=== PATIENT | female | born 1985 | race Caucasian/White ===

== ENCOUNTER 2024-12-13 16:14 | Outpatient (OUT) | payer OTHER, SELFPAY ==
--- OUTSIDE RECORDS SUMMARY | 2024-12-13 16:21 | XMS_ITS | Encounter Summary ---
Author Organization [facility] Address [address] [place] [address] Care Team Providers Care Milk Drying Machine Operator Name Role Phone Unavailable Primary Care Provider Unavailabl e Source Comments In the event this information is protected by the Federal Confidentiality of Alcohol and Drug AbusePatient Records regulations: The Federal rules restrict any use of the information to criminally investigate or prosecute any alcohol or drug abuse patient.[facility] Encounter Details Date Type Department Care Team (Late st Contact Info) Description 11/18/2022 Patient Msg Neurology [address] [place] [address] Provider, Ccf Requested EMG Appointment Social History Tobacco Use Types Packs/Day Years Used Date Smoking Tobacco: Never Smokeless Tobacco: Never Area Deprivation Index Answer Date Jg rded National Score (1-100), lower number is lower ri sk 61 11/12/2022 State Score (1-10), lower number is lower risk 4 11/12/2022 Data from: https://www.neighborhoodatlas.medicine.[facility].edu/. Last address used for calculation [place] [address] 11/12/2022 Comments Unknown Sex and Gender Information Value Date Recorded Sex Assigned at Not on file Legal Sex Female 9:49 PM EST Gender Identity Not on file Sexual Orientation Not on file documented as of this encounter Plan of Treatment Not on file documented as of this encounter Visit Diagnoses Not on filedocumented in this encounter
--- OUTSIDE RECORDS SUMMARY | 2024-12-13 16:21 | XMS_ITS | Clinical Summary ---
Author Organization [employer] Address [id number] [address] [place] [address] Care Team Providers Care Health Occupations Teacher Name Role Phone Unavailable Primary Care Provider Unavailabl e Social History Tobacco Use Types Packs/Day Years Used Date Smoking Tobacco: Never Assessed Childcare Answer Date Recorded Childcare Unknown 12/09/2018 Employment Answer Date Recorded Employment Unknown 12/09/2018 Comments Unknown Sex and Gender Information Value Date Recorded Sex Assigned at Not on file Legal Sex Female 12:07 PM EDT Gender Identity Not on file Sexual Orientation Not on file Plan of Treatment Not on file Medical Devices Not on file
--- OUTSIDE RECORDS SUMMARY | 2024-12-13 16:21 | XMS_ITS | Clinical Summary ---
Author Organization [facility] Address [address] [place] [address] Care Team Providers Care Stab Setter And Driller Name Role Phone Unavailable Primary Care Provider Unavailabl e Allergies Active Allergy Reactions Criticality Noted Date Comments Cephalexin Hives 11/12/2022 Medications VYVANSE 30 mg capsule Take 30 mg by mouth every morning. 11/04/2022 Active escitalopram oxalate (LEXAPRO) 10 mg tablet Take 10 mg by mouth once daily. 09/11/2022 Active omeprazole (PRILOSEC) 40 mg capsule Take 40 mg by mouth. 07/08/2022 Active gabapentin (NEURONTIN) 300 mg capsule Take 1 capsule by mouth once daily for 90 days. 30 capsule 2 02/07/2023 Active Social History Tobacco Use Types Packs/Day Years Used Date Smoking Tobacco: Never Smokeless Tobacco: Never Tobacco Cessation:Counseling Given: Not Answered Area Deprivation Index Answer Date Jg rded National Score (1-100), lower number is lower ri sk 61 02/07/2023 State Score (1-10), lower number is lower risk 4 02/07/2023 Data from: https://www.neighborhoodatlas.medicine.[facility].edu/. Last address used for calculation Aman [address] 02/07/2023 Comments Unknown Sex and Gender Information Value Date Recorded Sex Assigned at Not on file Legal Sex Female 9:49 PM EST Gender Identity Not on file Sexual Orientation Not on file Plan of Treatment Health Maintenance Due Date Last Done Comments Anxiety Screening 12/17/2005 Depression Screening 12/17/2005 HIV Screening 12/17/2005 Hepatitis C Screening 12/17/2005 DTaP,Tdap,Td Vaccine (1 - Tdap) 12/17/2006 Hepatitis B Vaccine (1 of 3 - 19+ 3-dose series) 12/17 Cervical Cancer Screening 12/17/2008 Covid-19 Vaccine (2023- season) 2024 Influenza Vaccine (Season Ended) 2025 Insurance [employer] BC[employer] [facility]
--- OUTSIDE RECORDS SUMMARY | 2024-12-13 16:21 | XMS_ITS | Patient Health Record ---
Author Organization [facility] Address [address] [place] [address] Care Team Providers Care Project Development Manager Name Role Phone Ja Ousmane Primary Care Provider Reason For Referral No Information Encounters Encounter Location Date Provider Diagnosis [facility] [address] [place] [address] 02/11/2024 Ousmane Peres Plan Of Treatment No Information Insurance Providers Payer Name Payer Address Payer Phone Subscriber Number Group Number Insured Name Patient Relationship to Insured Coverage Start Date Coverage End Date [employer] PPO [address] [place] [address] [id number] HUMBERTO GARCIA Self - patient is the insured 4 [facility] Medicaid [address] [place] [address] [id number] HUMBERTO GARCIA Self - patient is the insured 4 [employer] [facility] [employer] [address] [place] [address] [id number] HUMBERTO GARCIA Self - patient is the insured 4
[2024-12-13 16:57] LABS: Basophils Percent Auto 0.3 % (0.2-2.0); Eosinophils Absolute Auto 0.1 10^3/uL (0.0-0.7); Eosinophils Percent Auto 0.9 % (0.9-7.0); Hematocrit 40.2 % (36.0-48.0); Hemoglobin 14.4 g/dL (12.0-16.0); Immature Granulocytes Abs Auto 0.03 10^3/uL (0.00-0.03); Immature Granulocytes Pct Auto 0.4 % (0.0-0.5); Lymphocytes Absolute Auto 2.6 10^3/uL (1.2-3.8); Lymphocytes Percent Auto 34.9 % (20.5-60.0); Mean Corpuscular HGB Conc 35.8 g/dL (29.9-35.2); Mean Corpuscular Hemoglobin 32.1 pg (26.7-34.0); Mean Corpuscular Volume 89.7 fL (81.0-99.0); Mean Platelet Volume 10.6 fL (9.5-13.5); Monocytes Absolute Auto 0.6 10^3/uL (0.3-0.8); Monocytes Percent Auto 7.6 % (1.7-12.0); Neutrophils Absolute Auto 4.2 10^3/uL (1.4-6.5); Neutrophils Percent Auto 55.9 % (43.0-75.0); Platelet Count 166 10^3/uL (150-450); Red Blood Count 4.48 10^6/uL (4.20-5.40); White Blood Count 7.5 10^3/uL (4.0-11.0)
[2024-12-13 17:10] LABS: Estimated Average Glucose 108 mg/dL; Glycohemoglobin A1C 5.4 % (4.5-6.2)
[2024-12-13 17:21] LABS: HCG Quantitative <1 mIU/mL; Thyroid Stimulating Hormone 1.684 uIU/mL (0.358-3.740)
[2024-12-13 17:53] LABS: Free T4 0.91 ng/dL (0.76-1.46)
[2024-12-15 04:07] LABS: FSH 4.2 mIU/mL (.); Luteinizing Hormone(LH) 4.2 mIU/mL (.)
== END 2024-12-13 16:15 | disposition home or self-care (01) ==
LOC: LAB 16:19
PROVIDERS: PCP Family Medicine; Visit Provider Nurse Practitioner Family
DX: E28.2 Polycystic ovarian syndrome (principal)
CPT/HCPCS: 36415; 82627; 83001; 83002; 83036; 84439; 84443; 84702; 85025

== ENCOUNTER 2025-03-17 15:18 | Outpatient (OUT) | payer OTHER, SELFPAY ==
--- OUTSIDE RECORDS SUMMARY | 2025-03-14 14:00 | XMS_ITS | Encounter Summary ---
Author Organization [facility] Address [address] [facility] [place] [address] Care Team Providers Care Pre K Teacher Name Role Phone Félix Campbell MD Primary Care Provider [phone] Reason for Referral * Other Medical (Routine) - Authorized Specialty Diagnoses / Procedures Referred By Contac t Referred To Contact Neurology Diagnoses Arm weakness Numbness Arm pain, left Procedures EMG AND NERVE CONDUCTION STUDY Bala Champagne PA [address] [place] [address] Phone: tel: fax: Nell Vazquez DO [address] [facility] [address] [place] [address] Phone: tel: fax: Referral ID Status Reason Start Date Expiration Date V isits Requested Visits Authorized [id number] Authorized 03/14/2025 09/10/2025 1 1 Reason for Visit * Reason Comments Pain Encounter Details Date Type Department Care Team (Late st Contact Info) Description 03/14/2025 2:00 PM EDT Office Visit [facility] [address] [facility] [address] [place] [address] Bala Champagne PA [address] [place] [address] Acute pain of left shoulder (Primary Dx); Left elbow pain; Arm weakness; Numbness; Arm pain, left Social History Tobacco Use Types Packs/Day Years Used Date Smoking Tobacco: Never Assessed Comments No Sex and Gender Information Value Date Recorded Sex Assigned at Female 12/06/2024 6:41 PM EDT Legal Sex Female 7:05 PM EDT Gender Identity Female 12/06/2024 6:41 PM EDT Sexual Orientation Not on file documented as of this encounter Progress Notes * VINICIUS Ortez - 03/14/2025 2:00 PM EDT Images from the original note were not included. Orthopedic Office note: NAME: Oneida Rachel : 1985 (EST PT) (LAST APPT W/ DR. CLEANING) (NEW PROBLEM) - WORSENING (L) SHOULDER / (L) ELBOW N/T / DISCOMFORT ~1 YR NO RECENT IMAGING NO RECENT EMG (L) ELBOW CONSTANT DISCOMFORT TO ULNAR ASPECT - RADIATION TO FINGERS / WRIST. ADMITS N/T TO ULNAR ASPECT WITHPRESSURE ON ELBOW / BENT. GOOD ROM. ADMITS STIFFNESS. ADMITS WEAKNESS. DENIES SWELLING. TRIED ELBOWSTRAP - SOME RELIEF. NIGHT SPLINTING - MINIMAL RELIEF. WAKING HS. USES CONTOUR PILLOW HS. NO PAIN MEDS. VOLTAREN - NO RELIEF. ADMITS ICING. (L) SHOULDER ANTERIOR DISCOMFORT / N/T - CAN RADIATE INTO NECK. DENIES SWELLING. ADMITS TIGHTNESS. SOME WEAKNESS- DIFFICULTY WITH OPENING THINGS. GOOD ROM - PAINFUL. WAKING HS. USES CONTOUR PILLOW HS. VOLTAREN -NO RELIEF. NO PAIN MEDS. ADMITS ICING. Physical Exam General Appearance: Normal. Respiratory: No acute distress. Cardiovascular: Radial pulses 2+. Musculoskeletal: Left arm: Mild Tinel's at the cubital tunnel. Negative Tinel's at the carpal tunnel. Equal symmetric title clerk strength 5 out of 5. Wrist flexion, extension 5 out of 5 against resistance.Bicep, tricep function 5 out of 5 against resistance. Deltoid intact with sensation, firing 5 out of 5. Rotator cuff 5 out of 5 without significant pain. Mild AC joint tenderness. Full range of motion of elbow, passive and active without complaints of pain. Positive elbow flexion test. Negative Froment sign. No evidence of first dorsal webspace atrophy. Compartments are soft. Skin: Small patch of psoriasis or eczema noted behind left ear. Skin without evidence of rash. Neurological: Symmetric reflexes, bicep, tricep, brachioradialis that are 2+ without clonus. Negative Murillo sign. Other observations: Negative for Spurling's. Mild soreness in left trapezius. Full range of motion without complaints of pain. Orders Placed This Encounter Procedures EMG AND NERVE CONDUCTION STUDY Right Upper Extremity EMG Scheduling Instructions: Schedule with Dr. Vazquez @[facility] [place] Procedures Results ICD-10-CM 1. Acute pain of left shoulder M25.512 2. Left elbow pain M25.522 CANCELED: XR elbow 3+ views left 3. Arm weakness R29.898 EMG AND NERVE CONDUCTION STUDY 4. Numbness R20.0 EMG AND NERVE CONDUCTION STUDY 5. Arm pain, left M79.602 EMG AND NERVE CONDUCTION STUDY F/U Dr. Keyes s/p EMG to discuss need for possible: Consider cubital tunnel release: If neg, recommend Xray of C-spine- therapy and possible Prednisone taper Surgical and non surgical tx options discussed with conservative measures reviewed. Recommend ICE/ ELEVATION, continued activity modification in interim. Pt would consider surgical intervention to possibly improve symptoms. Assessment & Plan Left arm pain and numbness Recurrent symptoms of paresthesia and discomfort have been present for the past year, particularly noticeable at work and influenced by position. The most likely diagnosis is cubital tunnel syndrome,although this does not fully explain the symptoms extending to the shoulder. Diagnostic plan: An EMG of the left upper extremity has been recommended to evaluate for potential nerve injury. Treatment plan: In the interim, towel rolls nightly have been advised to prevent elbow flexion while sleeping, with instructions provided on their application and use at the bedside. Anxiety Anxiety has been intermittently treated previously and appears to exacerbate symptoms in certain situations. Follow-up: She plans to discuss her anxiety with her family doctor at an upcoming appointment. Questions answered in laymen terms at the bedside. The diagnosis, home exercise plan and any ongoing restrictions/ recommendations reviewed. If unable to be reached in office, I recommend evaluation at nearest Emergency Room if any symptoms worsened or new symptoms develop for requiring urgent evaluation. Visit was preformed using [employer]-airplane pilot speech recognition. documented in this encounter Plan of Treatment Upcoming Encounters Date Type Department Care Team (Late st Contact Info) Description 04/06/2025 1:30 PM EDT Office Visit [facility] [address] [place] [phone] Jr. Macario Keyes, DO [address] [facility] [address] [place] [address] Scheduled Orders Name Type Priority Associated Diagnoses Orde r Schedule EMG AND NERVE CONDUCTION STUDY Neurology Routine Arm weakness Numbness Arm pain, left Ordered: 03/14/2025 documented as of this encounter Visit Diagnoses Diagnosis Acute pain of left shoulder- Primary Left elbow pain Pain in joint, upper arm Arm weakness Other musculoskeletal symptoms referable to limbs Numbness Disturbance of skin sensation Arm pain, left Pain in soft tissues of limb documented in this encounter Care Teams Pre K Teacher Relationship Specialty Start Date End Date Félix Campbell MD [address] [place] [address] PCP - General Family Medicine 12/13/24 documented as of this encounter
--- OUTSIDE RECORDS SUMMARY | 2025-03-17 15:22 | XMS_ITS | Encounter Summary ---
Author Organization [facility] Address [address] [facility] [place] [address] Care Team Providers Care Cemetery Warden Name Role Phone Félix Campbell MD Primary Care Provider [phone] Encounter Details Date Type Department Care Team (Latest Contact Info) Description 03/14/2025 Travel Social History Tobacco Use Types Packs/Day Years Used Date Smoking Tobacco: Never Assessed Comments No Sex and Gender Information Value Date Recorded Sex Assigned at Female 12/06/2024 6:41 PM EDT Legal Sex Female 7:05 PM EDT Gender Identity Female 12/06/2024 6:41 PM EDT Sexual Orientation Not on file documented as of this encounter Plan of Treatment Upcoming Encounters Date Type Department Care Team (Late st Contact Info) Description 04/06/2025 1:30 PM EDT Office Visit [facility] [address] [facility] [address] [place] [address] Jr. Macario Keyes, DO [address] [facility] [address] [place] [address] documented as of this encounter Visit Diagnoses Not on filedocumented in this encounter Care Teams Cemetery Warden Relationship Specialty Start Date End Date Félix Campbell MD [address] [place] [address] PCP - General Family Medicine 12/13/24 documented as of this encounter
--- OUTSIDE RECORDS SUMMARY | 2025-03-17 15:22 | XMS_ITS | Encounter Summary ---
Author Organization [facility] Address [address] [place] [address] Care Team Providers Care Sat Act Instructor Name Role Phone Félix Campbell MD Primary Care Provider [phone] Encounter Details Date Type Department Care Team (Late st Contact Info) Description 12/23/2024 Orders Only [facility] [address] [facility] [address] [address] Marsha Miller LPN [address] [place] [address] Social History Tobacco Use Types Packs/Day Years Used Date Smoking Tobacco: Never Assessed Comments Unknown Sex and Gender Information Value [...] [facility] [address] [place] [address] [place] [id number] Jr. Macario Keyes, DO [address] [facility] [address] [place] [address] documented as of this encounter Procedures Procedure Name Priority Date/Time Associated Diagnosis Comments PAP SMEAR Routine 03/13/2022 12:00 AM EDT documented in this encounter Results * Pap Smear (03/13/2022 12:00 AM EDT) Swab Cervical swab / Unknown Phill Nurse [facility] CYTOLOGY ORDERABLES Final Result EXTERNAL LAB documented in this encounter Visit Diagnoses Not on filedocumented in this encounter Care Teams Sat Act Instructor Relationship Specialty Start Date End Date Félix Campbell MD [address] [place] [address] PCP - General Family Medicine 12/13/24 documented as of this encounter
--- OUTSIDE RECORDS SUMMARY | 2025-03-17 15:22 | XMS_ITS | Encounter Summary ---
Author Organization [facility] Address [address] [place] [address] Care Team Providers Care Tanning Wheel Filler Name Role Phone Félix Campbell MD Primary Care Provider [phone] Encounter Details Date Type Department Care Team (Late st Contact Info) Description 01/04/2025 Abstract [facility] [address] [facility] [place] [address] Dory Victor MA Social History Tobacco Use Types Packs/Day Years [...] Description 04/06/2025 1:30 PM EDT Office Visit [facility] [address] [place] [address] [place] [address] Jr. Macario Keyes DO [address] [facility] [address] [place] [address] documented as of this encounter Visit Diagnoses Not on filedocumented in this encounter Care Teams Tanning Wheel Filler Relationship Specialty Start Date End Date Félix Campbell MD [address] [place] [address] PCP - General Family Medicine 12/13/24 documented as of this encounter
--- OUTSIDE RECORDS SUMMARY | 2025-03-17 15:22 | XMS_ITS | Encounter Summary ---
Author Organization [facility] Address [address] [place] [address] Care Team Providers Care Drafter Assistant Name Role Phone Unavailable Primary Care Provider Unavailabl e Source Comments In the event this information is protected by the Federal Confidentiality of Alcohol and Drug AbusePatient Records regulations: The Federal rules restrict any use of the information to criminally investigate or prosecute any alcohol or drug abuse patient.[facility] Encounter Details Date Type Department Care Team (Late st Contact Info) Description 11/18/2022 Patient Msg Neurology [address] [place] [address] Provider, Ccf Requested EMG Appointment Social History Tobacco Use Types Packs/Day Years Used Date Smoking Tobacco: Never Smokeless Tobacco: Never Area Deprivation Index Answer Date Jg rded National Score (1-100), lower number is lower ri sk 61 11/12/2022 State Score (1-10), lower number is lower risk 4 11/12/2022 Data from: https://www.neighborhoodatlas.medicine.[facility].edu/. Last address used for calculation Aman Buenrostro [...]
--- OUTSIDE RECORDS SUMMARY | 2025-03-17 15:22 | XMS_ITS | Encounter Summary ---
Author Organization [facility] Address [address] [facility] [place] [address] Care Team Providers Care Bacon Skinner Name Role Phone Félix Campbell MD Primary Care Provider [phone] Encounter Details Date Type Department Care Team (Latest Contact Info) Description 03/13/2025 Travel Social History Tobacco Use Types Packs/Day [...] Office Visit [facility] [address] [facility] [address] [place] [phone] Jr. Macario Keyes, DO 112 [facility] 150 [place] [address] documented as of this encounter Visit Diagnoses Not on filedocumented in this encounter Care Teams Bacon Skinner Relationship Specialty Start Date End Date Félix Campbell MD [address] [place] [address] PCP - General Family Medicine 12/13/24 documented as of this encounter
--- OUTSIDE RECORDS SUMMARY | 2025-03-17 15:22 | XMS_ITS | Clinical Summary ---
Author Organization [facility] Address [address] [place] [address] Care Team Providers Care Inspector Returned Materials Name Role Phone Félix Campbell MD Primary Care Provider [phone] Allergies Active Allergy Reactions Criticality Noted Date Comments Cephalexin Anaphylaxis,Cough,Hi ves, Itching,Rash High 11/12/2022 Other Reaction(s): Hives Medications omeprazole (PriLOSEC) [address] capsule Take 40 mg by mouth Daily Active amphetamine-dex troamphetamine XR (Adderall XR) 15 MG 24 hr capsule TAKE 1 CAPSULE BY MOUTH EVERY DAY IN THE MORNING 4 Active escitalopram (Lexapro) 10 MG tablet See Instructions, TAKE 1 TABLET BY MOUTH EVERY DAY, # 90 tab(s), Refills(s) 0, Pharmacy: [id number], 162.6, cm, 08/12/24 10:32:00 EST, Height/Length Dosing, 120.5, kg, 08/12/24 10:32:00 EST, Weight Dosing 5 Active escitalopram (Lexapro) 10 MG tablet 1 (one) time each day at the same time Active Vyvanse 40 MG capsule Take 40 mg by mouth 5 Active meloxicam (Mobic) 15 MG tablet TAKE 1 TABLET BY MOUTH EVERY DAY FOR 30 DAYS 4 Active metroNIDAZOLE (Metrogel) 0.75 % vaginal gelIndications: BV (bacterial vaginosis) Patient to use one applicator vaginally nightly for 5 nights, then twice weekly thereafter for 4 months. 140 g 3 5 Active metroNIDAZOLE (Flagyl) 500 MG tabletIndicatio ns:BV (bacterial vaginosis) Take 1 tablet (500 mg) by mouth in the morning and 1 tablet (500 mg) before bedtime. Do all this for 7 days. 14 tablet 03/04/20 25 Active Problems Problem Noted Date Diagnosed Date Pelvic pain in female 12/29/2024 History of ovarian cyst 12/29/2024 Encounters Date Type Department Care Team Description 03/14/2025 2:00 PM EDT Office Visit [facility] [address] [place] [address] [place] [address] Bala Champagne PA Acute pain of left shoulder (Primary Dx); Left elbow pain; Arm weakness; Numbness; Arm pain, left 03/14/2025 Bamboo flowsheet [facility] [address] [place] [address] [place] [address] Bala Champagne PA 03/14/2025 Travel 03/13/2025 Travel 02/25/2025 Telephone [facility] [address] [place] [address] Jamal Pollock DO 02/24/2025 Patient Self-Triage [facility] 521 Family Medicine [address] [facility] [place] [place] [address] Mycgraciela Quintero, Physician, 02/24/2025 Patient Self-Triage [facility] 521 Family Medicine [address] [facility] [place] [address] Mycgraciela Quintero, Physician, 01/04/2025 Abstract [facility] [address] [place] [address] Dory Victor MA 01/03/2025 Telephone [facility]ERCE[facility] [address] [place] [address] Dory Victor MA 12/29/2024 11:10 AM EDT Office Visit [facility] [place] [address] [place] [address] Jamal Pollock DO Encounter to discuss test results; Pelvic pain in female; History of ovarian cyst 12/29/2024 External Result Encounter [facility] External Department Unsolicited Jamal Pollock DO 12/29/2024 Travel 12/23/2024 Orders Only [facility] [address] [facility] [address] Marsha Miller LPN 12/15/2024 11:00 AM EDT Ancillary Procedure [facility] [address] [facility] [address] Pelvic pain in female from Last 3 Months Social History Tobacco Use Types Packs/Day Years Used Date Smoking Tobacco: Never Assessed Comments No Sex and Gender Information Value Date Recorded Sex Assigned at Female 12/06/2024 6:41 PM EDT Legal Sex Female 7:05 PM EDT Gender Identity Female 12/06/2024 6:41 PM EDT Sexual Orientation Not on file Last Filed Vital Signs Vital Sign Reading Time Taken Comments Blood Pressure 120/74 12/29/2024 11:28 AM EDT Pulse - - Temperature - - Respiratory Rate - - Oxygen Saturation - - Inhaled Oxygen Concentration - - Weight 132 kg (292 lb) 12/29/2024 11:28 AM EDT Height 162.6 cm (5' 4 ) 12/29/2024 11:28 AM EDT Body Mass Index 50.12 12/29/2024 11:28 AM EDT Plan of Treatment Upcoming Encounters Date Type Department Care Team (Late st Contact Info) Description 04/06/2025 1:30 PM EDT Office Visit [facility] [address] [place] [place] [phone] Jr. Macario Keyes, 112 [facility] 150 [place] [address] Procedures Procedure Name Priority Date/Time Associated Diagnosis Comments RECURRENT VAGINITIS (HTRX) Routine 12/29/2024 2:17 PM EDT US PELVIC COMPLETE W/ TV Routine 12/15/2024 11:23 AM EDT Pelvic pain in female from Last 3 Months Results * (ABNORMAL) RECURRENT VAGINITIS (HTRX) (12/29/2024 2:17 PM EDT) [facility] ATOPOBIUM VAGINAE 16.783(A) 19.961 - 24.689 ppm 12/30/2024 6:41 AM EDT [facility] ATOPOBIUM VAGINAE Detected(A) 19.961 - 24.689 ppm 12/30/2024 6:41 AM EDT [facility] BVAB 2,3 (BACTERIAL VAGINOSIS ASSOCIATED BACTERIA 2, 3); MOBILUNCUS SPP 11.068(A) 19.961 - 24.689 ppm 12/30/2024 6:41 AM EDT [facility] BVAB 2,3 (BACTERIAL VAGINOSIS ASSOCIATED BACTERIA 2, 3); MOBILUNCUS SPP Detected(A) 19.961 - 24.689 ppm 12/30/2024 6:41 AM EDT [facility] ALISIA ALBICANS, PARAPSILOSIS, TROPICALIS 0 19.961 - 30.770 ppm 12/30/2024 6:41 AM EDT [facility] ALISIA ALBICANS, PARAPSILOSIS, TROPICALIS Not Detected 19.961 - 30.770 ppm 12/30/2024 6:41 AM EDT [facility] ALISIA GLABRATA 0 23.000 - 32.138 ppm 12/30/2024 6:41 AM EDT [facility] ALISIA GLABRATA Not Detected 23.000 - 32.138 ppm 12/30/2024 6:41 AM EDT [facility] ALISIA KRUSEI 0 23.000 - 32.271 ppm 12/30/2024 6:41 AM EDT [facility] ALISIA KRUSEI Not Detected 23.000 - 32.271 ppm 12/30/2024 6:41 AM EDT [facility] CHLAMYDIA TRACHOMATIS 0 23.000 - 31.467 ppm 12/30/2024 6:41 AM EDT [facility] CHLAMYDIA TRACHOMATIS Not Detected 23.000 - 31.467 ppm 12/30/2024 6:41 AM EDT [facility] [facility] GARDNERELLA VAGINALIS 16.0470(A) 19.961 - 24.689 ppm 12/30/2024 6:41 AM EDT [facility] GARDNERELLA VAGINALIS Detected(A) 19.961 - 24.689 ppm 12/30/2024 6:41 AM EDT [facility] MEGASPHAERA (TYPES 1, 2) 0 19.961 - 24.689 ppm 12/30/2024 6:41 AM EDT [facility] MEGASPHAERA (TYPES 1, 2) Not Detected 19.961 - 24.689 ppm 12/30/2024 6:41 AM EDT [facility] NEISSERIA GONORRHOEAE 0 23.000 - 32.117 ppm 12/30/2024 6:41 AM EDT [facility] NEISSERIA GONORRHOEAE Not Detected 23.000 - 32.117 ppm 12/30/2024 6:41 AM EDT [facility] TRICHOMONAS VAGINALIS 0 23.000 - 32.119 ppm 12/30/2024 6:41 AM EDT [facility] TRICHOMONAS VAGINALIS Not Detected 23.000 - 32.119 ppm 12/30/2024 6:41 AM EDT [facility] MYCOPLASMA GENITALIUM 0 19.961 - 24.689 ppm 12/30/2024 6:41 AM EDT [facility] MYCOPLASMA GENITALIUM Not Detected 19.961 - 24.689 ppm 12/30/2024 6:41 AM EDT [facility] ERMB, C; MEFA 15.866(A) 23.000 - 27.611 ppm 12/30/2024 6:41 AM EDT [facility] ERMB, C; MEFA Detected(A) 23.000 - 27.611 ppm 12/30/2024 6:41 AM EDT [facility] TET B, TET M 18.008(A) 23.000 - 27.778 ppm 12/30/2024 6:41 AM EDT [facility] TET B, TET M Detected(A) 23.000 - 27.778 ppm 12/30/2024 6:41 AM EDT [facility] Tissue 12/29/2024 2:17 PM EDT 12/30/2024 1:22 AM EDT us Jamal Phill DO LAB BLOOD ORDERABLES Final Resul t [facility] [address] [place] [address] * US Pelvis w/ TV (12/15/2024 11:23 AM EDT) Anatomical Region Laterality Modality Pelvis Ultrasound 12/17/2024 6:15 AM EDT Narrative 12/17/2024 6:15 AM EDT EXAM: US PELVIC COMPLETE W/ TV HISTORY: Pelvic pain x 2 weeks. COMPARISON: None available. TECHNIQUE: Two-dimensional transabdominal grayscale ultrasound imaging of the pelvis was performed. Color flow Doppler imaging of the ovaries was also performed. Transvaginal was performed. Limited exam, patient unable to hold bladder. FINDINGS: UTERUS 9.1 x 4.5 x 4.6 cm The uterus is retroflexed in position and demonstrates a normal, homogeneous echotexture. ENDOMETRIUM 1.3 cm The endometrium demonstrates a normal, homogeneous echotexture. RIGHT OVARY The right ovary is not visualized due to overlying bowel gas. LEFT OVARY 2.1 x 1.1 x 1.2 cm The left ovary demonstrates a normal echotexture. There is normal color Doppler flow. No fluid is present within the cul-de-sac. IMPRESSION: 1. Unremarkable ultrasound of the pelvis; however, limited exam. 2. Normal color Doppler flow within the left ovary, the right ovary was not visualized. Interpreted by: Electronically signed by CUAUHTEMOC COSTELLO II, MD, PHD at 17-Dec-2024 06:13:57 AM [facility] Procedure Note Cuauhtemoc Costello MD - 12/17/2024 EXAM: US PELVIC COMPLETE W/ TV HISTORY: Pelvic pain x 2 weeks. COMPARISON: None available. TECHNIQUE: Two-dimensional transabdominal grayscale ultrasound imaging ofthe pelvis was performed. Color flow Doppler imaging of the ovaries wasalso performed. Transvaginal was performed. Limited exam, patient unableto hold bladder. FINDINGS: UTERUS 9.1 x 4.5 x 4.6 cm The uterus is retroflexed in position and demonstrates a normal,homogeneous echotexture. ENDOMETRIUM 1.3 cm The endometrium demonstrates a normal, homogeneous echotexture. RIGHT OVARY The right ovary is not visualized due to overlying bowel gas. LEFT OVARY 2.1 x 1.1 x 1.2 cm The left ovary demonstrates a normal echotexture. There is normal colorDoppler flow. No fluid is present within the cul-de-sac. IMPRESSION: 1. Unremarkable ultrasound of the pelvis; however, limited exam. 2. Normal color Doppler flow within the left ovary, the right ovary wasnot visualized. Interpreted by: Electronically signed by CUAUHTEMOC COSTELLO II, MD, PHD 06:13:57 AM [facility] us Olivia Gaspar NP IMG US PROCEDURES Final Resul t from Last [address] [place] [address] [employer] Care Teams Inspector Returned Materials Relationship Specialty Start Date End Date Félix Campbell MD [address] [place] [address] PCP - General Family Medicine 12/13/24
--- OUTSIDE RECORDS SUMMARY | 2025-03-17 15:22 | XMS_ITS | Clinical Summary ---
Author Organization [facility] Address [address] [place] [address] Care Team Providers Care High Lift Operator Name Role Phone Unavailable Primary Care [...] is lower risk 4 02/07/2023 Data from: https://www.neighborhoodatlas.medicine.[facility].edu/. Last address used for calculation Aman Alexx [...] 3-dose series) 12/17 Cervical Cancer Screening 12/17/2008 HPV Vaccine (1 - 3-dose SCDM series) 12/17/2014 Influenza Vaccine (#1) [address] [place], [place] [id number] [employer] [facility] [place] [facility]
--- OUTSIDE RECORDS SUMMARY | 2025-03-17 15:22 | XMS_ITS | Encounter Summary ---
Author Organization [facility] Address [address] [place] [address] Care Team Providers Care Privacy Analyst Name Role Phone Félix Campbell MD Primary Care Provider [phone] Encounter Details Date Type Department Care Team (Late st Contact Info) Description 03/14/2025 Bamboo flowsheet [facility] [address] [facility] [address] [place] [address] [place] [address] Bala Champagne, PA [address] [place] [address] Social History Tobacco Use Types Packs/Day Years [...] Orthopaedics [address] [place] [place] [address] Jr. Macario Keyes, DO 112 [facility] 150 [place] [address] documented as of this encounter Visit Diagnoses Not on filedocumented in this encounter Care Teams Privacy Analyst Relationship Specialty Start Date End Date Félix Campbell MD [address] [place] [address] PCP - General Family Medicine 12/13/24 documented as of this encounter
--- OUTSIDE RECORDS SUMMARY | 2025-03-17 15:22 | XMS_ITS | Clinical Summary ---
Author Organization apprupt s tem Address [id number] [address] [place] [address] Care Team Providers Care Accountant Assistant Name Role Phone Unavailable Primary Care [...]
[2025-03-17 15:41] LABS: Hematocrit 40.6 % (36.0-48.0); Hemoglobin 14.6 g/dL (12.0-16.0); Immature Granulocytes Abs Auto 0.00 10^3/uL (0.00-0.03); Immature Granulocytes Pct Auto 0.0 % (0.0-0.5); Lymphocytes Absolute Auto 2.1 10^3/uL (1.2-3.8); Mean Corpuscular HGB Conc 36.0 g/dL (29.9-35.2); Mean Corpuscular Hemoglobin 31.9 pg (26.7-34.0); Mean Corpuscular Volume 88.6 fL (81.0-99.0); Platelet Count 206 10^3/uL (150-450); Red Blood Count 4.58 10^6/uL (4.20-5.40); White Blood Count 6.6 10^3/uL (4.0-11.0)
[2025-03-17 16:20] LABS: Iron 89.0 ug/dL (50.0-170.0)
[2025-03-17 16:56] LABS: Alanine Aminotransferase 106 U/L (14-59); Albumin Globulin Ratio 1.3; Albumin Level 4.4 g/dL (3.4-5.0); Alkaline Phosphatase 43 U/L (46-116); Anion Gap 15.9; Aspartate Amino Transferase 45 U/L (15-37); Blood Urea Nitrogen 5.0 mg/dL (7.0-18.0); Calcium 9.1 mg/dL (8.5-10.1); Carbon Dioxide 27.6 mmol/L (21.0-32.0); Chloride 102 mmol/L (98-107); Cholesterol 172 mg/dL (<=200); Estimated GFR (African America >60 (>=60 mL/min/1.73m^2); Estimated GFR (Non-African Ame >60 (>=60 mL/min/1.73m^2); Free T3 1.91 pg/mL (2.18-3.98); Globulin 3.5 g/dL; Glucose 93 mg/dL (74-106); HDL Cholesterol 43 mg/dL (40-60); Potassium 3.5 mmol/L (3.5-5.1); Sodium 142 mmol/L (136-145); Thyroid Stimulating Hormone 0.788 uIU/mL (0.358-3.740); Total Protein 7.9 g/dL (6.4-8.2); Triglycerides 107 mg/dL (<=150); VLDL CHOLESTEROL 21.4 mg/dL
== END 2025-03-17 15:19 | disposition home or self-care (01) ==
LOC: LAB 15:20
PROVIDERS: PCP Family Medicine; Visit Provider Family Medicine
DX: Z00.00 Encounter for general adult medical examination without abnormal findings (principal); F41.9 Anxiety disorder, unspecified; I10 Essential (primary) hypertension; R07.9 Chest pain, unspecified; M54.12 Radiculopathy, cervical region
CPT/HCPCS: 36415; 80053; 80061; 83036; 83525; 83540; 84436; 84443; 84481; 85025

== ENCOUNTER 2025-03-18 09:41 | Outpatient (OUT) | payer OTHER, SELFPAY ==
--- OUTSIDE RECORDS SUMMARY | 2025-03-14 14:00 | XMS_ITS | Encounter Summary ---
Author Organization [facility] Address [address] [facility] [place] [address] Care Team Providers Care Security Program Manager Name Role Phone Félix Campbell MD Primary Care Provider [phone] Reason for Referral * Other Medical (Routine) - Authorized Specialty Diagnoses / Procedures Referred By Contac t Referred To Contact Neurology Diagnoses Arm weakness Numbness Arm pain, left Procedures EMG AND NERVE CONDUCTION STUDY Bala Champagne PA [address] [place] [address] Phone: tel: fax: Nell Vazquez DO [address] [facility] [address] [place] [address] Phone: tel: fax: Referral ID Status Reason Start Date Expiration Date V isits Requested Visits Authorized [id number] Authorized 03/14/2025 09/10/2025 1 1 Reason for Visit * Reason Comments Pain Encounter Details Date Type Department Care Team (Late st Contact Info) Description 03/14/2025 2:00 PM EDT Office Visit [facility] [address] [facility] [address] [place] [address] Bala Champagne PA [address] [place] [address] Acute pain of left shoulder [...] Tinel's at the carpal tunnel. 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 Wrist flexion, [...] EMG Scheduling Instructions: Schedule with [facility] Vazquez @[facility] [place] Procedures Results ICD-10-CM 1. Acute pain [...] requiring urgent evaluation. Visit was preformed using [employer]-commercial airplane pilot speech recognition. documented in this encounter Plan of Treatment Upcoming Encounters Date Type Department Care Team (Late st Contact Info) Description 04/06/2025 1:30 PM EDT Office Visit [facility] [address] [place] [address] Jr. Macario Keyes, DO [address] [facility] [address] [place] [address] Scheduled Orders Name Type Priority Associated Diagnoses [...] limb documented in this encounter Care Teams Security Program Manager Relationship Specialty Start Date End Date Félix Campbell MD [address] [place] [address] PCP - General Family Medicine 12/13/24 documented as of this encounter
--- OUTSIDE RECORDS SUMMARY | 2025-03-18 09:44 | XMS_ITS | Encounter Summary ---
Author Organization [facility] Address [address] [facility] [place] [address] Care Team Providers Care Blasting Worker Name Role Phone Félix Campbell MD Primary Care Provider [phone] Encounter Details Date Type Department Care Team [...] Office Visit [facility] [address] [facility] 110 [place] [phone] Jr. Macario Keyes, DO 112 [facility] 150 [place] [address] documented as of this encounter Visit Diagnoses Not on filedocumented in this encounter Care Teams Blasting Worker Relationship Specialty Start Date End Date Félix Campbell MD [address] [facility] [address] PCP - General Family Medicine 12/13/24 documented as of this encounter
--- OUTSIDE RECORDS SUMMARY | 2025-03-18 09:44 | XMS_ITS | Encounter Summary ---
Author Organization [facility] Address [address] [facility] [place] [address] Care Team Providers Care Student Dean Name Role Phone Félix Campbell MD Primary Care Provider [phone] Encounter Details Date Type Department Care Team [...] Office Visit [facility] [address] [facility] [address] [place] [address] Jr. Macario Keyes, DO 112 [facility] 150 [place] [address] documented as of this encounter Visit Diagnoses Not on filedocumented in this encounter Care Teams Student Dean Relationship Specialty Start Date End Date Félix Campbell MD [address] [place] [address] PCP - General Family Medicine 12/13/24 documented as of this encounter
--- OUTSIDE RECORDS SUMMARY | 2025-03-18 09:44 | XMS_ITS | Encounter Summary ---
Author Organization [facility] Address [address] [place] [address] Care Team Providers Care Pepper Picker Name Role Phone Félix Campbell MD Primary Care Provider [phone] Encounter Details Date Type Department Care Team (Late st Contact Info) Description 12/23/2024 Orders Only [facility] [address] [place] [address] Marsha Miller LPN [address] [place] [address] Social History Tobacco Use Types Packs/Day Years [...] [address] [place] [phone] Jr. Macario Keyes, DO 112 [facility] [address] [place] [address] documented as of this encounter Procedures Procedure Name Priority Date/Time Associated Diagnosis Comments PAP SMEAR Routine 03/13/2022 12:00 AM EDT documented in this encounter Results * Pap Smear (03/13/2022 12:00 AM EDT) Swab Cervical swab / Unknown Phill Nurse [facility] LAB CYTOLOGY ORDERABLES Final Result EXTERNAL LAB documented in this encounter Visit Diagnoses Not on filedocumented in this encounter Care Teams Pepper Picker Relationship Specialty Start Date End Date Félix Campbell MD [address] [place] [address] PCP - General Family Medicine 12/13/24 documented as of this encounter
--- OUTSIDE RECORDS SUMMARY | 2025-03-18 09:44 | XMS_ITS | Clinical Summary ---
Author Organization [facility] Address [address] [place] [address] Care Team Providers Care Cardiology Technician Name Role Phone Félix Campbell MD Primary Care Provider [phone] Allergies Active Allergy Reactions Criticality Noted Date [...] DAY, # 90 tab(s), Refills(s) 0, Pharmacy: [facility] 84[facility], 162.6, cm, 08/12/24 10:32:00 EST, Height/Length Dosing, [...] Description 03/14/2025 2:[address]T Office [facility] [address] [place] [address] [place] [address] Bala Champagne PA Acute pain of left shoulder (Primary Dx); Left elbow pain; Arm weakness; Numbness; Arm pain, left 03/14/2025 Bamboo flowsheet [facility] [address] [place] [address] [place] [address] Bala Champagne PA 03/14/2025 Travel 03/13/2025 Travel 02/25/2025 Telephone [facility] [address] [place] [address] Jamal Pollock DO 02/24/2025 Patient Self-Triage [facility] 521 Family Medicine [address] [facility] [place] [place] [address] Mycgraciela Quintero, Physician, 02/24/2025 Patient Self-Triage [facility] Family [facility] [address] [facility] [place] [address] Mycgraciela Quintero, Physician, 01/04/2025 Abstract [facility] [address] [address] Dory Victor MA 01/03/2025 Telephone [facility] [address] [place] [address] Dory Victor MA 12/29/2024 11:10 AM EDT Office Visit [facility] [address] [facility] [place] [address] Jamal Pollock DO Encounter to discuss test results; Pelvic pain in female; History of ovarian cyst 12/29/2024 External Result Encounter [facility] External Department Unsolicited Jamal Pollock DO 12/29/2024 Travel 12/23/2024 Orders Only [facility] [place] [address] [facility] [place] [address] Marsha Miller LPN from Last 3 Months Social History Tobacco [...] Office Visit [facility] [address] [place] [address] [place] [address] Jr. Macario Keyes, DO [address] [place] 150 [place] [address] Procedures Procedure Name Priority Date/Time Associated Diagnosis Comments RECURRENT VAGINITIS (HTRX) Routine 12/29/2024 2:17 PM EDT from Last 3 Months Results * (ABNORMAL) RECURRENT VAGINITIS (HTRX) (12/29/2024 2:17 PM EDT) [facility] ATOPOBIUM VAGINAE 16.783(A) 19.961 - 24.689 ppm 12/30/2024 6:41 AM EDT [facility] ATOPOBIUM VAGINAE Detected(A) 19.961 - 24.689 ppm 12/30/2024 6:41 AM EDT [facility] BVAB 2,3 (BACTERIAL VAGINOSIS ASSOCIATED BACTERIA 2, 3); MOBILUNCUS SPP 11.068(A) 19.961 - 24.689 ppm 12/30/2024 6:41 AM EDT [facility] BVAB 2,3 (BACTERIAL VAGINOSIS ASSOCIATED BACTERIA 2, 3); MOBILUNCUS SPP Detected(A) 19.961 - 24.689 ppm 12/30/2024 6:41 AM EDT [facility] ALISIA ALBICANS, PARAPSILOSIS, TROPICALIS 0 19.961 - 30.770 ppm 12/30/2024 6:41 AM EDT [facility] ALISIA ALBICANS, PARAPSILOSIS, TROPICALIS Not Detected 19.961 - 30.770 ppm 12/30/2024 6:41 AM EDT [facility] ALISIA GLABRATA 0 23.000 - 32.138 ppm 12/30/2024 6:41 AM EDT [facility] ALISIA GLABRATA Not Detected 23.000 - 32.138 ppm 12/30/2024 6:41 AM EDT [facility] ALISIA KRUSEI 0 23.000 - 32.271 ppm 12/30/2024 6:41 AM EDT [facility] ALISIA KRUSEI Not Detected 23.000 - 32.271 ppm 12/30/2024 6:41 AM EDT [facility] CHLAMYDIA TRACHOMATIS 0 23.000 - 31.467 ppm 12/30/2024 6:41 AM EDT [facility] CHLAMYDIA TRACHOMATIS Not Detected 23.000 - 31.467 ppm 12/30/2024 6:41 AM EDT [facility] GARDNERELLA VAGINALIS 16.0470(A) 19.961 - 24.689 ppm 12/30/2024 6:41 AM EDT [facility] GARDNERELLA VAGINALIS Detected(A) 19.961 - 24.689 ppm 12/30/2024 6:41 AM EDT [facility] MEGASPHAERA (TYPES 1, 2) 0 19.961 - 24.689 ppm 12/30/2024 6:41 AM EDT [facility] MEGASPHAERA (TYPES 1, 2) Not Detected 19.961 - 24.689 ppm 12/30/2024 6:41 AM EDT [facility] NEISSERIA GONORRHOEAE 0 23.000 - 32.117 ppm 12/30/2024 6:41 AM EDT [facility] NEISSERIA GONORRHOEAE Not Detected 23.000 - 32.117 ppm 12/30/2024 6:41 AM EDT [facility] TRICHOMONAS VAGINALIS 0 23.000 - 32.119 ppm 12/30/2024 6:41 AM EDT [facility] TRICHOMONAS VAGINALIS Not Detected 23.000 - 32.119 ppm 12/30/2024 6:41 AM EDT [facility] MYCOPLASMA GENITALIUM 0 19.961 - 24.689 ppm 12/30/2024 6:41 AM EDT [facility] MYCOPLASMA GENITALIUM Not Detected 19.961 - 24.689 ppm 12/30/2024 6:41 AM EDT [facility] ERMB, C; MEFA 15.866(A) 23.000 - 27.611 ppm 12/30/2024 6:41 AM EDT [facility] ERMB, C; MEFA Detected(A) 23.000 - 27.611 ppm 12/30/2024 6:41 AM EDT [facility] TET B, TET M 18.008(A) 23.000 - 27.778 ppm 12/30/2024 6:41 AM EDT [facility] TET B, TET M Detected(A) 23.000 - 27.778 ppm 12/30/2024 6:41 AM EDT [facility] Tissue 12/29/2024 2:17 PM EDT 12/30/2024 1:22 AM EDT us Jamal Pollock DO LAB BLOOD ORDERABLES Final Resul t [facility] [address] [place] [address] from Last [address] [place] [address] [employer] Care Teams Cardiology Technician Relationship Specialty Start Date End Date Félix Campbell MD [address] [place] [address] PCP - General Family Medicine 12/13/24
--- OUTSIDE RECORDS SUMMARY | 2025-03-18 09:44 | XMS_ITS | Clinical Summary ---
Author Organization Mashalot s tem Address [id number] [address] [place] [address] Care Team Providers Care Analytical Clerk Name Role Phone Unavailable Primary Care Provider [...]
--- OUTSIDE RECORDS SUMMARY | 2025-03-18 09:44 | XMS_ITS | Clinical Summary ---
Author Organization [facility] Address [address] [place] [address] Care Team Providers Care Dredge Operator Supervisor Name Role Phone Unavailable Primary Care Provider [...] is lower risk 4 02/07/2023 Data from: https://www.neighborhoodatlas.medicine.[facility].edu/. Last address used for calculation Aman Alexx [...] 12/17/2014 Influenza Vaccine (#1) [address] [place], [place] [id number] AN[place]M BCBS [facility]
--- OUTSIDE RECORDS SUMMARY | 2025-03-18 09:44 | XMS_ITS | Encounter Summary ---
Author Organization [facility] Address [address] [place] [address] Care Team Providers Care Cone Trucker Name Role Phone Unavailable Primary Care Provider Unavailabl e Source Comments In the event this information is protected by the Federal Confidentiality of Alcohol and Drug AbusePatient Records regulations: The Federal rules restrict any use of the information to criminally investigate or prosecute any alcohol or drug abuse patient.[facility] Encounter Details Date Type Department Care Team (Late st Contact Info) Description 11/18/2022 Patient Msg Neurology [address] [place] [address] Provider, Ccf Requested EMG Appointment Social History Tobacco Use Types Packs/Day Years Used Date Smoking Tobacco: Never Smokeless Tobacco: Never Area Deprivation Index Answer Date Jg rded National Score (1-100), lower number is lower ri sk 61 11/12/2022 State Score (1-10), lower number is lower risk 4 11/12/2022 Data from: https://www.neighborhoodatlas.medicine.[facility].edu/. Last address used for calculation Aman [...]
--- OUTSIDE RECORDS SUMMARY | 2025-03-18 09:44 | XMS_ITS | Encounter Summary ---
Author Organization [facility] Address [address] [place] [address] Care Team Providers Care Choke Setter Name Role Phone Félix Campbell MD Primary Care Provider [phone] Encounter Details Date Type Department Care Team (Late st Contact Info) Description 03/14/2025 Bamboo flowsheet [facility] [address] [place] [address] [place] [address] Bala Champagne, PA [address] [facility] [place] [address] Social History Tobacco Use Types [...] Orthopaedics [address] [place] [place] [address] Jr. Macario Keyes, DO 112 [facility] 150 [place] [address] documented as of this encounter Visit Diagnoses Not on filedocumented in this encounter Care Teams Choke Setter Relationship Specialty Start Date End Date Félix Campbell MD [address] [place] [address] PCP - General Family Medicine 12/13/24 documented as of this encounter
[2025-03-18 10:28] LABS: Alanine Aminotransferase 101 U/L (14-59); Albumin Globulin Ratio 1.2; Albumin Level 4.2 g/dL (3.4-5.0); Alkaline Phosphatase 41 U/L (46-116); Anion Gap 15.6; Aspartate Amino Transferase 46 U/L (15-37); Blood Urea Nitrogen 5.0 mg/dL (7.0-18.0); Calcium 8.9 mg/dL (8.5-10.1); Carbon Dioxide 25.8 mmol/L (21.0-32.0); Chloride 103 mmol/L (98-107); Estimated GFR (African America >60 (>=60 mL/min/1.73m^2); Estimated GFR (Non-African Ame >60 (>=60 mL/min/1.73m^2); Globulin 3.5 g/dL; Glucose 109 mg/dL (74-106); Potassium 3.4 mmol/L (3.5-5.1); Sodium 141 mmol/L (136-145); Total Protein 7.7 g/dL (6.4-8.2)
== END 2025-03-18 09:42 | disposition home or self-care (01) ==
LOC: LAB 09:42
PROVIDERS: PCP Family Medicine; Visit Provider Family Medicine
DX: R94.5 Abnormal results of liver function studies (principal)
CPT/HCPCS: 36415; 80053; 80074

== ENCOUNTER 2025-03-25 07:23 | Outpatient (OUT) | payer OTHER, SELFPAY ==
--- OUTSIDE RECORDS SUMMARY | 2025-03-14 14:00 | XMS_ITS | Encounter Summary ---
Author Organization [facility] Address [address] [facility] [place] [address] Care Team Providers Care Expediter Clerk Name Role Phone Félix Campbell MD Primary Care Provider [phone] Reason for Referral * Other Medical (Routine) - Authorized Specialty Diagnoses / Procedures Referred By Contac t Referred To Contact Neurology Diagnoses Arm weakness Numbness Arm pain, left Procedures EMG AND NERVE CONDUCTION STUDY Bala Champagne PA [address] [place] [address] Phone: tel: fax: Nell Vazquez DO [address] [facility] [address] [place] [address] Phone: tel: fax: Referral ID Status Reason Start Date Expiration Date V isits Requested Visits Authorized [id number] Authorized 03/14/2025 09/10/2025 1 1 Reason for Visit * Reason Comments Pain Encounter Details Date Type Department Care Team (Late st Contact Info) Description 03/14/2025 2:00 PM EDT Office Visit [facility] [address] [facility] [address] [place] [address] Bala Champagne PA [address] [place] [address] Acute pain of left shoulder [...] Tinel's at the carpal tunnel. Equal symmetric radio electronics technician strength 5 out of 5. Wrist flexion, [...] EMG Scheduling Instructions: Schedule with Dr. Vazquez @[facility] [place] Procedures Results ICD-10-CM 1. Acute pain [...] requiring urgent evaluation. Visit was preformed using [employer]-pilot instructor speech recognition. documented in this encounter Plan of Treatment Upcoming Encounters Date Type Department Care Team (Late st Contact Info) Description 04/06/2025 1:30 PM EDT Office Visit [facility] [address] [place] [address] Jr. Macario Keyes, DO [address] [facility] [address] [place] [address] Scheduled Orders Name Type Priority Associated Diagnoses [...] limb documented in this encounter Care Teams Expediter Clerk Relationship Specialty Start Date End Date Félix Campbell MD [address] [place] [address] PCP - General Family Medicine 12/13/24 documented as of this encounter
--- OUTSIDE RECORDS SUMMARY | 2025-03-17 10:30 | XMS_ITS ---
Author Organization [facility] in [place] Address [address] [place] [address] Care Team Providers Care Dumpling Machine Operator Name Role Phone Brain Chan Primary Care Provider [phone] Allergies Allergen (clinical drug ingredient) Drug/Non Drug Allergy documented on EMR Reaction Allergy Type Onset Date Status Keflex hives, breathing issues Drug Allergy Active REASON FOR VISIT new patient- Megan's neighbor Megan checked her bp yesterday and left arm was 150/90, right arm was 118/70, Moving from Dr Campbell office, HAsnt been on meds for over 2 months- loaded what she was taking inher chart, Anxiety has been bad lately, Had blood in ear- that day started with pressure/headache in the entire head for about a week- has taken Tylenol and IBU and didn't help, Getting numbness/tingling in the left side of chest and into the neck and down the arm- heart racing, Wants to have carotids checked due to different BPs in the arms, BP today Left arm 122/84, Right arm 142/92 Medications Medication SIG (Take, Route, Fr equency, Duration) Notes Start Date End Date Status Omeprazole 40 MG 1 capsule 1/2 to 1 h our before morning meal Orally Once a day; Duration: 30 days 03/17/2025 Active Lexapro 10 MG 1 tablet Orally Once a day; Duration: 30 days 03/17/2025 Active Vyvanse 20 MG 1 capsule in the mor simran Orally Once a day 03/18/2025 Active hydrOXYzine HCl 10 MG 2 tablet Orally QID- PRN Active Social History Tobacco Use: Social History Observation Description Date Details (start date - stop date) Former Smoker 06/30/2005 - 02/28/2010 Tobacco Control (Standard) Question Answer Notes Tobacco use: Former smoker When did you start smoking? 06/30/2005 When did you stop smoking? 02/28/2010 How long has it been since you last smoked? Grea ter than 10 years Additional Findings: Tobacco non-user Ex-light c igarette smoker (1-9/day) AUDIT-C (Standard) Question Answer Notes Did you have a drink contain ing alcohol in the past year? Yes How often did you have a dri nk containing alcohol in the past year? Monthly or less (1 point) How many drinks did you have on a typical day when you were drinking in the past year? 1 or 2 drinks (0 point) How often did you have six o r more drinks on one occasion in the past year? Never (0 point) Points 1 Interpretation Negative Problems Problem Type SNOMED Code ICD Code Onset Dates Problem Status W/U Status Risk Notes Problem Attention deficit hyperactivity disorder (662051075) ADHD (F90.9) Active confirmed Problem Sleep apnea (05480287) Sleep apnea (G47.30) Active confirmed Problem Well adult (826441751) Well adult (Z00.00) Active confirmed Problem Chest pain (44241605) Chest pain (R07.9) Active confirmed Problem Cervical radiculopathy (16822421) Cervical radiculopathy (M54.12) Active confirmed Problem Hypertension (18815663) Hypertension (I10) Active confirmed Problem Gastroesophageal reflux disease (910222234) GERD (gastroesophagea l reflux disease) (K21.9) Active confirmed Problem Anxiety (72459891) Anxiety (F41.9) Active confi rmed Vital Signs Weight 279.0 lbs 03/17/2025 Height 64 in 03/17/2025 Blood pressure systolic 142 mm Hg 03/17/20 25 Blood pressure diastolic 92 mm Hg 025 Heart Rate 76 /min 03/17/2025 BMI 47.89 kg/m2 03/17/2025 Procedures Procedure Date Ordered Date Performed Result Body Sit e CARDIO Echocardiogram 03/17/2025 N/A VASC US CAROTID ARTERY DUPLEX BILATERAL 03/17/2025 N/A Encounters Encounter Location Date Provider Diagnosis [facility] [address] [place] [address] 03/17/2025 Brain Homyra Anxiety F41.9 ; Hypertension I10 ; Chest pain R07.9 ; Cervical radiculopathy M54.12 ; Well adult Z00.00 ; Sleep apnea G47.30 and ADHD F90.9 Assessments Encounter Date Diagnosis (ICD Code) Assessment Notes Treatment Notes Treatment Clinical Notes Section Notes 03/17/2025 Anxiety (ICD-10 - F41.9) back on lexapro 03/17/2025 Hypertension (ICD-10 - I10) up here - 03/17/2025 Chest pain (ICD-10 - R07.9) checking echo 03/17/2025 Cervical radiculopathy (ICD-10 - M54.12) getting EMG 03/17/2025 Well adult (ICD-10 - Z00.00) needs labs 03/17/2025 Sleep apnea (ICD-10 - G47.30) Weaing mas daily - help ihwt daytime fatiguye 03/17/2025 ADHD (ICD-10 - F90.9) Plan Of Treatment Medication Medication Name Sig Start Date Stop Date Notes Omeprazole 40 MG 1 capsule 1/2 to 1 h our before morning meal Orally Once a day; Duration: 30 days 03/17/2025 Lexapro 10 MG 1 tablet Orally Once a day; Duration: 30 days 03/17/2025 Vyvanse 20 MG 1 capsule in the mor simran Orally Once a day 03/18/2025 Treatment Notes Assessment Notes Anxiety back on lexapro Hypertension up here - Chest pain checking echo Cervical radiculopathy getting EMG Well adult needs labs Sleep apnea Weaing mas daily - h elp ihwt daytime fatiguye Pending Test Test Name Order Date HEMOGLOBIN A1C (GLYCO) 03/17/2025 IRON, TOTAL 03/17/2025 LIPID PANEL (CHOL/TRIG/HDL/LDL) 03/17/20 25 CARDIO Echocardiogram 03/17/2025 Insulin Level 03/17/2025 THYROID PANEL (T4/TSH/FREE T3) 5 VASC US CAROTID ARTERY DUPLEX BILATERAL 03/17/2025 CMP (COMP MET CURRY) w/eGFR CKD-EPI 2024 CBC WITH DIFF 03/17/2025 Progress Notes * Carlo GARCIA:1985 ( 39 yo F)Acc No.[id number]:03/17/2025 New Patient Patient: Oneida HAQ Provider: Lexis Chan ([facility])MD :1985 A ge:39 Y S ex:Female Date:03/17/2025 Address:[address] [place] [address] , [place], [id number] Check In:02:17 PM ESTCheck O ut:03:11 PM EST Subjective: * Chief Complaints: * n ew patient- Megan's neighbor Megan checked her bp yesterday and left arm was 150/90, right arm was 118/70Moving from Dr Campbell officeHAsnt been on meds for over 2 months- loaded what she was taking in her chartAnxiety has been bad latelyHad blood in ear- that day started with pressure/headache in the entire head for about a week- has taken Tylenol and IBU and didn't helpGetting numbness/tingling in the left side of chest and into the neck and down the arm- heart racingWants to have carotids checked due to different BPs in the armsBP today Left arm 122/84, Right arm 142/92 * HPI: D epression Screening: PHQ-9 L ittle interest or pleasure in doing things?Several days F eeling down, depressed, or hopeless S everal days T rouble falling or staying asleep, or sleeping too much M ore than half the days F eeling tired or having little energy S everal days P oor appetite or overeating M ore than half the days F eeling bad about yourself or that you are a failure, or have let yourself or your family down M ore than half the days T rouble concentrating on things, such as reading the newspaper or watching television S everal days M oving or speaking so slowly that other people could have noticed; or the opposite, being so fidgety or restless that you have been moving around a lot more than usual N ot at all T houghts that you would be better off or of hurting yourself in some way N ot at all T otal Score 1 0 I nterpretation M oderate Depression More headache anxiety - through the roof. * ROS: E ENT: hearing changes d enies. v isual changes d enies.?non-healing mouth sores d enies. s wollen glands or neck lumps d enies. h oarseness d enies. s ore throat d enies. d ifficulty swallowing d enies. n ose bleeds d enies. n simeon congestion d enies. e ar ache d enies. e ar discharge?denies. r inging in ears d enies. l ight sensitivity d enies. e ye pain d enies. b lurring d enies. e ye irritation d enies. d ouble vision d enies.?vision loss d enies. G eneral/Constitutional: Sweats: D enies. F atigue d enies. S leep problems d enies. A norexia d enies. M alaise d enies. W eight loss d enies.?Fatigue or Weakness d enies. F ever or Chills d enies. C ardiovascular: Shortness of Breath w/lying flat d enies. L ightheadedness/dizziness d enies. C hest tightness/ heavy pressure d enies. S welling of legs, ankles, or feet d enies. W aking up with shortness of breath d enies. C hest pain denies. P alpitations d enies. W eight gain d enies. R espiratory: Chronic or frequent cough d enies. C oughing up blood?denies. D ifficulty breathing d enies. P roductive cough d enies. S noring?denies. S hortness of breath that awakens from sleep (PND) d enies. C hest pain d enies. S putum production d enies. W heezing d enies. M usculoskeletal: Joint pain d enies. J oint Fluid d enies. B ack pain d enies. K nee pain d enies. N nicole pain d enies. J oint Stiffness d enies. M uscle cramps d enies. W eakness of muscles d enies. A rthritis d enies. M uscle aches d enies. P ain in shoulder(s) d enies. S wollen joints d enies. * Active Problem List I10 Hypertension Modified On:03/17/2025 Status:confirmed K21.9 GERD (gastroesophage al reflux disease) Modified On:03/17/2025 Status:confirmed F41.9 Anxiety Modified On:03/17/2025 Status:confirmed M54.12 Cervical radiculopat hy Modified On:03/17/2025 Status:confirmed R07.9 Chest pain Modified On:03/17/2025 Status:confirmed Z00.00 Well adult Modified On:03/17/2025 Status:confirmed G47.30 Sleep apnea Modified On:03/17/2025 Status:confirmed F90.9 ADHD Modified On:03/17/2025 Status:confirmed E05.90 Hyperthyroidism Modified On:03/18/2025 Status:confirmed * Medical History: * Surgical History: C HOLECYSTECTOMY 2CESAREAN DELIVERY- twins 2009Right ankle surgery x5 BB removed from right eyelid 1993 * Hospitalization/Major Diagno stic Procedure: N o Hospitalization History. * Family History: S on(s): alive. D aughter(s): alive. 1 son(s) , 2 daughter(s) - healthy. . N on-Contributory. Patient is adopted. * Social History: T obacco Use: T obacco Control (Standard) T obacco use: F ormer smoker W hen did you start smoking? 0 06/30/2005 W hen did you stop smoking? 0 02/28/2010 H ow long has it been since you last smoked??Greater than 10 years A dditional Findings: Tobacco non-user E x-light cigarette smoker (1-9/day) D rug/Alcohol: A ABBIE-C (Standard) D id you have a drink containing alcohol in the past year? Y es H ow often did you have a drink containing alcohol in the past year? M onthly or less (1 point) H ow many drinks did you have on a typical day when you were drinking in the past year? 1 or 2 drinks (0 point) H ow often did you have six or more drinks on one occasion in the past year? N ever (0 point) P oints 1 I nterpretation N egative * Medications: T akinghydrOXYzine HCl 10 MG Tablet 2 tablet Orally QID- PRN Lexapro(Escitalopram Oxalate) 10 MG Tablet 1 tablet Orally Once a day Omeprazole 40 MG Capsule Delayed Release 1 capsule 1/2 to 1 hour before morning meal Orally Once a day Vyvanse(Lisdexamfetamine Dimesylate) 40 MG Capsule 1 capsule in the morning Orally Once a day Medication List reviewed and reconciled with the patientTaking hydrOXYzine HCl 10 MG Tablet 2 tablet Orally QID- PRN Taking Lexapro(Escitalopram Oxalate) 10 MG Tablet 1 tablet Orally Once a day Taking Omeprazole 40 MG Capsule Delayed Release 1 capsule 1/2 to 1 hour before morning meal Orally Once a day Taking Vyvanse(Lisdexamfetamine Dimesylate) 40 MG Capsule 1 capsule in the morning Orally Once a day Medication List reviewed and reconciled with the patient * Allergies: K eflex: hives, breathing issues - Allergyno[Allergies Verified] Objective: * Vitals: W t:279.0lbs, Ht: 64 in, BP: 122/84 mm Hg,142/92mm Hg, HR:76/min, BMI:47.89Index, Ht-cm: 162.56 cm, Wt-k.55 kg. * Examination: P hysical Exam: GENERAL: w ell developed, well nourished, in no acute distress. HEAD: n ormocephalic/atraumatic. EYES: p upils equal, round and reactive to light, conjunctivae and sclerae normal. EARS: n o deformity or lesion of external ear, canals and TM appear normal bilaterally, TM's intact, not inflamed with normal light reflex, hearing grossly normal to conversational speech. NOSE: n o deformity, discharge, inflammation, or lesions.? MOUTH: m ucous membranes moist, normal oropharynx and posterior pharynx without lesions or exudates, tongue normal, dentition normal. NECK: n nicole supple, no masses or palpable cervical nodes, trachea midline, thyroid without nodules, masses, tenderness, or enlargement. CHEST: n o chest wall deformity, no chest wall tenderness.? LUNGS: n ormal respiratory effort and clear to auscultation, no wheezes, rales, or rhonchi, good air exchange. CARDIO: r egular rate and rhythm, normal S1 and S2, nor murmur, rub, or gallop. PULSES: n ormal capillary refill. ABDOMEN: s oft, non-distended, non-tender, no masses. MUSCULOSKELETAL: n o deformity or scoliosis noted, normal range of motion, joints normal, no erythema, edema, effusion, or ecchymosis. EXTREMITY: n o clubbing, cyanosis, edema, or deformity with normal ROM in both upper and lower bilateral extremities. NEUROLOGIC: g rossly normal. SKIN: n o rashes, ulcerations, or suspicious lesions. LYMPH NODES: n o cervical adenopathy, nodes normal. MENTAL STATUS: a lert and oriented x3, normal mood and affect. Assessment: * Assessment: 1. A nxiety - F41.9 (Primary) 2 . H ypertension - I10 3 .?Chest pain - R07.9 4 . C ervical radiculopathy - M54.12 5 .?Well adult - Z00.00 6 . S leep apnea - G47.30 7 . A DHD - F90.9 Plan: * Treatment: 2. H ypertension L AB: HEMOGLOBIN A1C (GLYCO) L AB: IRON, TOTAL L AB: LIPID PANEL (CHOL/TRIG/HDL/LDL) L AB: Insulin Level L AB: THYROID PANEL (T4/TSH/FREE T3) L AB: CMP (COMP MET CURRY) w/eGFR CKD-EPI L AB: CBC WITH DIFF P rocedure: CARDIO Echocardiogram P rocedure: VASC US CAROTID ARTERY DUPLEX BILATERAL Notes: up here - 3. C hest pain L AB: HEMOGLOBIN A1C (GLYCO) L AB: IRON, TOTAL L AB: LIPID PANEL (CHOL/TRIG/HDL/LDL) L AB: Insulin Level L AB: THYROID PANEL (T4/TSH/FREE T3) L AB: CMP (COMP MET CURRY) w/eGFR CKD-EPI L AB: CBC WITH DIFF P rocedure: CARDIO Echocardiogram P rocedure: VASC US CAROTID ARTERY DUPLEX BILATERAL Notes: checking echo 4. C ervical radiculopathy L AB: HEMOGLOBIN A1C (GLYCO) L AB: IRON, TOTAL L AB: LIPID PANEL (CHOL/TRIG/HDL/LDL) L AB: Insulin Level L AB: THYROID PANEL (T4/TSH/FREE T3) L AB: CMP (COMP MET CURRY) w/eGFR CKD-EPI L AB: CBC WITH DIFF Notes: getting EMG 5. W ell adult L AB: HEMOGLOBIN A1C (GLYCO) L AB: IRON, TOTAL L AB: LIPID PANEL (CHOL/TRIG/HDL/LDL) L AB: Insulin Level L AB: THYROID PANEL (T4/TSH/FREE T3) L AB: CMP (COMP MET CURRY) w/eGFR CKD-EPI L AB: CBC WITH DIFF Notes: needs labs 6. S leep apnea Notes: Weshane page daily - help ihwt daytime fatiguye 7. A DHD Refill Vyvanse Capsule, 20 MG, 1 capsule in the morning, Orally, Once a day, 7, Refills 0; R efill Lexapro Tablet, 10 MG, 1 tablet, Orally, Once a day, 30 days, 30 Tablet, Refills 11; R efill Omeprazole Capsule Delayed Release, 40 MG, 1 capsule 1/2 to 1 hour before morning meal, Orally, Once a day, 30 days, 30, Refills 11. * Procedure Codes: * Preventive Medicine: Screenings/Counseling: B MD ACTION PLAN Above Normal BMI Follow-up D ietary management education, guidance, and counseling * * Sign off status: Completed Visit Status: C HK (Check Out) true * Provider: Lexis Chan ([facility])MD Date: 03/17/2025 Generated for Vilma barrett/Aly/eTransmitting on: 03/25/2025 07:26 AM EDT History and Physical Notes * HPI (History of Present Illness) Category Sub-Category Detail Notes Category Not es Depression Screening PHQ-9 Little inte rest or pleasure in doing things: Several days More headache anxiety - through the roof Feeling down, depressed, or hopeless: Se veral days Trouble falling or staying a sleep, or sleeping too much: More than half the days Feeling tired or having little energy: S everal days Poor appetite or overeating: More than h demetrice the days Feeling bad about yourself o r that you are a failure, or have let yourself or your family down: More than half the days Trouble concentrating on thi ngs, such as reading the newspaper or watching television: Several days Moving or speaking so slowly that other people could have noticed; or the opposite, being so fidgety or restless that you have been moving around a lot more than usual: Not at all Thoughts that you would be b fani off or of hurting yourself in some way: Not at all Total Score: 10 Interpretation: Moderate Depression Examination Category Sub-Category Detail Notes Category Not es Physical Exam GENERAL: well developed, well nourished, in no acute distress HEAD: normocephalic/atraum atic EYES: pupils equal, round and reactive to light, conjunctivae and sclerae normal EARS: no deformity or lesi on of external ear, canals and TM appear normal bilaterally, TM's intact, not inflamed with normal light reflex, hearing grossly normal to conversational speech NOSE: no deformity, discha rge, inflammation, or lesions MOUTH: mucous membranes steph st, normal oropharynx and posterior pharynx without lesions or exudates, tongue normal, dentition normal NECK: neck supple, no mass es or palpable cervical nodes, trachea midline, thyroid without nodules, masses, tenderness, or enlargement CHEST: no chest wall deform ity, no chest wall tenderness LUNGS: normal respiratory e ffort and clear to auscultation, no wheezes, rales, or rhonchi, good air exchange CARDIO: regular rate and rhy thm, normal S1 and S2, nor murmur, rub, or gallop PULSES: normal capillary ref ill ABDOMEN: soft, non-distended, non-tender, no masses RECTAL: MUSCULOSKELETAL: no deformity or scol iosis noted, normal range of motion, joints normal, no erythema, edema, effusion, or ecchymosis EXTREMITY: no clubbing, cyanosi s, edema, or deformity with normal ROM in both upper and lower bilateral extremities NEUROLOGIC: grossly normal SKIN: no rashes, ulceratio ns, or suspicious lesions LYMPH NODES: no cervical adenopat hy, nodes normal MENTAL STATUS: alert and oriented x 3, normal mood and affect
--- OUTSIDE RECORDS SUMMARY | 2025-03-17 14:24 | XMS_ITS ---
Author Organization [facility] in [place] Address [address] [place] [address] Care Team Providers Care Building Construction Contractor Name Role Phone Brain Chan Primary Care Provider REASON FOR VISIT labs Encounters Encounter Location Date Provider Diagnosis [facility] [address] [facility] [place] [address] 03/17/2025 Brain Chan Elevated liver funct ion tests R94.5 and Hyperthyroidism E05.90 Assessments Encounter Date Diagnosis (ICD Code) Assessment Notes Treatment Notes Treatment Clinical Notes Section Notes 03/17/2025 Elevated liver function tests (ICD-10 - R94.5) 03/17/2025 Hyperthyroidism (ICD-10 - E05.90) Plan Of Treatment Pending Test Test Name Order Date ACUTE HEPATITIS PANEL 03/17/2025 COMPREHENSIVE METABOLIC PROFILE WITH GFR 03/17/2025 THYROID PANEL (T4/TSH/FREE T3) US abdomen complete 03/17/2025 Progress Notes * Oneida GARCIADOB:1985 ( 39 yo F)Acc No.[id number]:03/17/2025 Patient: Oneida HAQ :1985 A ge:39 Y S ex:Female Address:[facility] [place], [address] Subjective: * Chief Complaints: * L abs * Medical History: * Surgical History: * Hospitalization/Major Diagno stic Procedure: * Medications: Objective: * Vitals: * Physical Examination: Assessment: * Assessment: 1. E levated liver function tests - R94.5 (Primary) 2 . H yperthyroidism - E05.90 Plan: * Treatment: 2. H yperthyroidism L AB: THYROID PANEL (T4/TSH/FREE T3) * Procedure Codes: * true * Date: Generated for iVlma barrett/Aly/Jasonitting on: 0 03/25/2025 07:26 AM EDT
--- OUTSIDE RECORDS SUMMARY | 2025-03-25 07:26 | XMS_ITS | Encounter Summary ---
Author Organization [facility] Address [address] [place] [address] Care Team Providers Care Bakery Supervisor Name Role Phone Félix Campbell MD Primary Care Provider [phone] Encounter Details Date Type Department Care Team (Late st Contact Info) Description 12/23/2024 Orders Only [facility] [address] [place] [address] Marsha Miller LPN [address] [place] [address] [place] [address] Social History Tobacco Use Types Packs/Day Years [...] [address] [place] [id number] Jr. Macario Keyes, DO 112 [facility] 150 [place] [address] documented as of this encounter Procedures Procedure Name Priority Date/Time Associated Diagnosis Comments PAP SMEAR Routine 03/13/2022 12:00 AM EDT documented in this encounter Results * Pap Smear (03/13/2022 12:00 AM EDT) Swab Cervical swab / Unknown Phill Nurse [facility] Ob LAB CYTOLOGY ORDERABLES Final Result EXTERNAL LAB documented in this encounter Visit Diagnoses Not on filedocumented in this encounter Care Teams Bakery Supervisor Relationship Specialty Start Date End Date Félix Campbell MD [address] [place] [address] PCP - General Family Medicine 12/13/24 documented as of this encounter
--- OUTSIDE RECORDS SUMMARY | 2025-03-25 07:26 | XMS_ITS | Clinical Summary ---
Author Organization [facility] Address [address] [place] [address] Care Team Providers Care Flag Decorator Name Role Phone Félix Campbell MD Primary Care Provider [phone] Allergies Active Allergy Reactions Criticality Noted Date [...] DAY, # 90 tab(s), Refills(s) 0, Pharmacy: [facility], 162.6, cm, 08/12/24 10:32:00 EST, Height/Length Dosing, [...] Description 03/14/2025 2:00 PM EDT Office Visit [facility] [address] [place] [address] [place] [address] Bala Champagne PA Acute pain of left shoulder (Primary Dx); Left elbow pain; Arm weakness; Numbness; Arm pain, left 03/14/2025 Bamboo flowsheet [facility] [address] [place] [address] [place] [address] Bala Champagne PA 03/14/2025 Travel 03/13/2025 Travel 02/25/2025 Telephone [facility] [address] [place] [address] Jamal Pollock DO 02/24/2025 Patient Self-Triage [facility] [address] [facility] [place] [place] [address] Mycgraciela Quintero, Physician, 02/24/2025 Patient Self-Triage [facility] Family [facility] [address] [facility] [place] [place] [address] Mycgraciela Quintero, Physician, 01/04/2025 Abstract [facility] [address] [place] [address] Dory Victor MA 01/03/2025 Telephone [facility] PIERCEGYN [address] [place] [address] Dory Victor MA 12/29/2024 11:10 AM EDT Office Visit [facility] José Miguel [facility] [address] [place] [address] Jamal Pollock DO Encounter to discuss test results; Pelvic pain in female; History of ovarian cyst 12/29/2024 External Result Encounter [facility] External Department Unsolicited Jamal Pollock DO 12/29/2024 Travel 12/23/2024 Orders Only [facility] José Miguel [facility] [address] [place] [address] Marsha Miller LPN from Last 3 [...] [address] [place] [address] [place] [address] Jr. Macario Keyes, DO [address] [place] [address] [place] [address] Procedures Procedure Name Priority Date/Time Associated Diagnosis Comments RECURRENT VAGINITIS (HTRX) Routine 12/29/2024 2:17 PM EDT from Last 3 Months Results * (ABNORMAL) RECURRENT VAGINITIS (HTRX) (12/29/2024 2:17 PM EDT) [facility] ATOPOBIUM VAGINAE 16.783(A) 19.961 - 24.689 ppm 12/30/2024 6:41 AM EDT [facility] ATOPOBIUM VAGINAE Detected(A) 19.961 - 24.689 ppm 12/30/2024 6:41 AM EDT [facility] BVAB 2,3 (BACTERIAL VAGINOSIS ASSOCIATED BACTERIA 2, 3); MOBILUNCUS SPP 11.068(A) 19.961 - 24.689 ppm 12/30/2024 6:41 AM EDT [facility] BVAB 2,3 (BACTERIAL VAGINOSIS ASSOCIATED BACTERIA 2, 3); MOBILUNCUS SPP Detected(A) 19.961 - 24.689 ppm 12/30/2024 6:41 AM EDT [facility] ALISIA ALBICANS, PARAPSILOSIS, TROPICALIS 0 19.961 - 30.770 ppm 12/30/2024 6:41 AM EDT [facility] ALISIA ALBICANS, PARAPSILOSIS, TROPICALIS Not Detected 19.961 - 30.770 ppm 12/30/2024 6:41 AM EDT [facility] ALISIA GLABRATA 0 23.000 - 32.138 ppm 12/30/2024 6:41 AM EDT [facility] ALISIA GLABRATA Not Detected 23.000 - 32.138 ppm 12/30/2024 6:41 AM EDT [facility] ALISIA KRUSEI 0 23.000 - 32.271 ppm 12/30/2024 6:41 AM EDT [facility] ALISIA KRUSEI Not Detected 23.000 - 32.271 ppm 12/30/2024 6:41 AM EDT [facility] CHLAMYDIA TRACHOMATIS 0 23.000 - 31.467 ppm 12/30/2024 6:41 AM EDT [facility] CHLAMYDIA TRACHOMATIS Not Detected 23.000 - 31.467 ppm 12/30/2024 6:41 AM EDT [facility] GARDNERELLA VAGINALIS 16.0470(A) 19.961 - 24.689 ppm 12/30/2024 6:41 AM EDT [facility] GARDNERELLA VAGINALIS Detected(A) 19.961 - 24.689 ppm 12/30/2024 6:41 AM EDT [facility] MEGASPHAERA (TYPES 1, 2) 0 19.961 - 24.689 ppm 12/30/2024 6:41 AM EDT [facility] MEGASPHAERA (TYPES 1, 2) Not Detected 19.961 - 24.689 ppm 12/30/2024 6:41 AM EDT [facility] NEISSERIA GONORRHOEAE 0 23.000 - 32.117 ppm 12/30/2024 6:41 AM EDT [facility] NEISSERIA GONORRHOEAE Not Detected 23.000 - 32.117 ppm 12/30/2024 6:41 AM EDT [facility] TRICHOMONAS VAGINALIS 0 23.000 - 32.119 ppm 12/30/2024 6:41 AM EDT [facility] TRICHOMONAS VAGINALIS Not Detected 23.000 - 32.119 ppm 12/30/2024 6:41 AM EDT [facility] MYCOPLASMA GENITALIUM 0 19.961 - 24.689 ppm 12/30/2024 6:41 AM EDT [facility] MYCOPLASMA GENITALIUM Not Detected 19.961 - 24.689 ppm 12/30/2024 6:41 AM EDT [facility] ERMB, C; MEFA 15.866(A) 23.000 - 27.611 ppm 12/30/2024 6:41 AM EDT [facility] ERMB, C; MEFA Detected(A) 23.000 - 27.611 ppm 12/30/2024 6:41 AM EDT [facility] TET B, TET M 18.008(A) 23.000 - 27.778 ppm 12/30/2024 6:41 AM EDT [facility] TET B, TET M Detected(A) 23.000 - 27.778 ppm 12/30/2024 6:41 AM EDT [facility] Tissue 12/29/2024 2:17 PM EDT 12/30/2024 1:22 AM EDT us Jamal Pollock DO LAB BLOOD ORDERABLES Final Resul t [facility] [address] [place] [address] from Last [address] [place] [address] [employer] Care Teams Flag Decorator Relationship Specialty Start Date End Date Félix Campbell MD [address] [place] [address] PCP - General Family Medicine 12/13/24
--- OUTSIDE RECORDS SUMMARY | 2025-03-25 07:26 | XMS_ITS | Encounter Summary ---
Author Organization [facility] Address [address] [place] [address] Care Team Providers Care Tree Pruner Name Role Phone Unavailable Primary Care Provider Unavailabl e Source Comments In the event this information is protected by the Federal Confidentiality of Alcohol and Drug AbusePatient Records regulations: The Federal rules restrict any use of the information to criminally investigate or prosecute any alcohol or drug abuse patient.[facility] Encounter Details Date Type Department Care Team (Late st Contact Info) Description 11/18/2022 Patient Msg Neurology [address] [place] [address] Provider, Ccf Requested EMG Appointment Social History Tobacco Use Types Packs/Day Years Used Date Smoking Tobacco: Never Smokeless Tobacco: Never Area Deprivation Index Answer Date Jg rded National Score (1-100), lower number is lower ri sk 61 11/12/2022 State Score (1-10), lower number is lower risk 4 11/12/2022 Data from: https://www.neighborhoodatlas.medicine.[facility].edu/. Last address used for calculation Aman [...]
--- OUTSIDE RECORDS SUMMARY | 2025-03-25 07:26 | XMS_ITS | Clinical Summary ---
Author Organization [facility] Address [address] [place] [address] Care Team Providers Care Biofuels Technology Development Manager Name Role Phone Unavailable Primary Care Provider [...] is lower risk 4 02/07/2023 Data from: https://www.neighborhoodatlas.medicine.[facility].edu/. Last address used for calculation Aman [...] 12/17/2014 Influenza Vaccine (#1) [address] [place], [place] [id number] AN[place]M BCBS MED[place]ID OF [facility]
--- OUTSIDE RECORDS SUMMARY | 2025-03-25 07:26 | XMS_ITS | Encounter Summary ---
Author Organization [facility] Address [address] [place] [address] Care Team Providers Care Metal Products Fabricator Assembler Name Role Phone Félix Campbell MD Primary Care Provider [phone] Encounter Details Date Type Department Care Team (Late st Contact Info) Description 01/04/2025 Abstract [facility] [address] [address] [place] [address] Dory Victor MA Social History [...] Orthopaedics [address] [place] [place] [address] Jr. Macario Keyes DO 112 [facility] 150 [place] [address] documented as of this encounter Visit Diagnoses Not on filedocumented in this encounter Care Teams Metal Products Fabricator Assembler Relationship Specialty Start Date End Date Félix Campbell MD [address] [place] [address] PCP - General Family Medicine 12/13/24 documented as of this encounter
--- NOTE | 2025-03-25 07:27 | US_ITS ---
The [address] [address] Patient Name: HUMBERTO GARCIA MRN: [id number] date: 1985 Sex: F Assigned Patient Location: US Current Patient Location: US Accession/Order Number: [id number] Exam Date: 03/25/2025 07:30 Report Date: 03/25/2025 08:27 At the request of: DIRK VILLASEÑOR MD Procedure: US abdomen complete COMPLETE ABDOMINAL ULTRASOUND CLINICAL HISTORY: elevated liver function tests and right upper quadrant pain. Prior cholecystectomy. COMPARISON: None The gallbladder is surgically absent. No intra- or extrahepatic biliary dilatation is evident. The common duct measures 2 mm. The liver shows increased echogenicity that may be fatty infiltration. No focal intrahepatic masses are seen. There is appropriate hepatopetal flow within the main portal vein. The pancreas shows no significant sonographic abnormality. The right kidney measures 10.4 cm and the left 12.8 cm in craniocaudal dimension. No renal mass lesions or hydronephrosis are identified. The spleen is normal in size measuring 11.4 cm in craniocaudal dimension. There is normal echogenicity. No aortic aneurysm is identified. The IVC is patent. No ascites is seen. US/US abdomen complete IMPRESSION: FATTY LIVER. OTHERWISE UNREMARKABLE ABDOMINAL ULTRASOUND Impression dictated by: Giuliana Bueno M.D. 03/25/2025 8:27 AM Dictation Location: [place] [address] Electronically authenticated by: [id number] Y Date: 03/25/2025 08:27
--- OUTSIDE RECORDS SUMMARY | 2025-03-25 07:27 | XMS_ITS | Encounter Summary ---
Author Organization [facility] Address [address] [place] [address] Care Team Providers Care Fire Equipment Operator Name Role Phone Félix Campbell MD Primary Care Provider [phone] Encounter Details Date Type Department Care Team (Late st Contact Info) Description 03/14/2025 Bamboo flowsheet [facility] [address] [place] [place] [address] Bala Champagne, PA [address] [facility] [place] [address] Social History Tobacco Use Types [...] Orthopaedics [address] [place] [place] [address] Jr. Macario Keyes, DO 112 [facility] 150 [place] [address] documented as of this encounter Visit Diagnoses Not on filedocumented in this encounter Care Teams Fire Equipment Operator Relationship Specialty Start Date End Date Félix Campbell MD [address] [place] [address] PCP - General Family Medicine 12/13/24 documented as of this encounter
--- OUTSIDE RECORDS SUMMARY | 2025-03-25 07:27 | XMS_ITS | Patient Health Record ---
Author Organization [facility] Address [address] [place] [address] Care Team Providers Care Peer Counselor Name Role Phone sharonOusmane Rossi Primary Care Provider [phone] Reason For Referral No Information Plan Of Treatment No Information Insurance Providers Payer Name Payer Address Payer Phone Subscriber Number Group Number Insured Name Patient Relationship to Insured Coverage Start Date Coverage End Date [employer] PPO [address] [place] [address] [id number] HUMBERTO GARCIA Self - patient is the insured 4 [facility] Medicaid [address] [place] [address] [id number] HUMBERTO GARCIA Self - patient is the insured 4 [employer] [facility] [address] [place] [address] [phone] [id number] HUMBERTO GARCIA Self - patient is the insured 4
--- OUTSIDE RECORDS SUMMARY | 2025-03-25 07:27 | XMS_ITS | Clinical Summary ---
Author Organization [facility] Address [id number] [address] [place] [address] Care Team Providers Care Manager Of Patient Name Role Phone Unavailable Primary Care Provider [...]
--- OUTSIDE RECORDS SUMMARY | 2025-03-25 07:27 | XMS_ITS | Encounter Summary ---
Author Organization [facility] Address [address] [facility] [place] [address] Care Team Providers Care Lab Support Technician Name Role Phone Félix Campbell MD Primary Care Provider [phone] Encounter Details Date Type Department Care Team [...] Office Visit [facility] [address] [facility] 110 [place] [address] Jr. Macario Keyes, DO 112 [facility] 150 [place] [address] documented as of this encounter Visit Diagnoses Not on filedocumented in this encounter Care Teams Lab Support Technician Relationship Specialty Start Date End Date Félix Campbell MD [address] [place] [address] PCP - General Family Medicine 12/13/24 documented as of this encounter
--- OUTSIDE RECORDS SUMMARY | 2025-03-25 07:27 | XMS_ITS | Encounter Summary ---
Author Organization [facility] Address [address] [facility] [place] [address] Care Team Providers Care Equipment Tester Name Role Phone Félix Campbell MD Primary Care Provider [phone] Encounter Details Date Type Department Care Team [...] Office Visit [facility] [address] [facility] 110 [place] [address] Jr. Macario Keyes, DO 112 [facility] 150 [place] [address] documented as of this encounter Visit Diagnoses Not on filedocumented in this encounter Care Teams Equipment Tester Relationship Specialty Start Date End Date Félix Campbell MD [address] [place] [address] PCP - General Family Medicine 12/13/24 documented as of this encounter
--- OUTSIDE RECORDS SUMMARY | 2025-03-25 07:27 | XMS_ITS | Patient Health Record ---
Author Organization [facility] Address [address] [place] [address] Care Team Providers Care Edi Coordinator Name Role Phone Brain Chan Primary Care Provider [phone] Allergies Allergen (clinical drug ingredient) Drug/Non Drug Allergy documented on EMR Reaction Allergy Type Onset Date Status Keflex hives, breathing issues Drug Allergy Active Results Component Value Reference Range Notes FREE T3 Reviewed date:03/17/2025 06:25:23 PM Interpretation: Performing Lab: Notes/Report: [facility] , Free T3 1.91 2.18-3.98 pg/mL Performing Lab: see note ML - [facility] LB IRON Reviewed date:03/17/2025 06:25:23 PM Interpretation: Performing Lab: Notes/Report: [facility] , Iron 89.0 50.0-170.0 ug/dL Performing Lab: see note ML - [facility] LB LIPID PROFILE Reviewed date:03/17/2025 06:25:23 PM Interpretation: Performing Lab: Notes/Report: [facility] , Triglycerides 107 <=150 mg/dL Cholesterol 172 <=200 mg/dL HDL Cholesterol 43 40-60 mg/dL > or =60 mg/dl - LOW CARDIOVASCULAR RISK <40 mg/dl - HIGH CARDIOVASCULAR RISK LDL Cholesterol Calculated 107.6 >190 mg/dl VERY HIGH 130-159 mg/dl BORDERLINE HIGH 100-129 mg/dl NEAR OR ABOVE OPTIMAL 160-189 mg/dl HIGH <100 mg/dl OPTIMAL VLDL CHOLESTEROL 21.4 Chol HDL Ratio 4.0 7.1 - 11.0 MODERATE RISK 3.3 - 4.4 LOW RISK >11.0 HIGH RISK 4.4 - 7.1 AVERAGE RISK Performing Lab: see note - [facility] PROF 14(COMP METB) Reviewed date:03/17/2025 06:25:23 PM Interpretation: Performing Lab: Notes/Report: [facility] , Sodium 142 136-145 mmol/L Potassium 3.5 3.5-5.1 mmol/L Chloride 102 98-107 mmol/L Carbon Dioxide 27.6 21.0-32.0 mmol/L Anion Gap 15.9 Glucose 93 74-106 mg/dL Blood Urea Nitrogen 5.0 7.0-18.0 mg/dL Creatinine 0.62 0.55-1.02 mg/dL Estimated GFR ( Alexus >60 >=60 mL/min/1.73m 2 Estimated GFR (Non- Maria Antonia >60 >=60 mL/min/1.73m 2 BUN Creatinine Ratio 8.1 Calcium 9.1 8.5-10.1 mg/dL Bilirubin Total 0.7 0.2-1.0 mg/dL Aspartate Amino Transferase 45 15-37 U/L Alanine Aminotransferase 106 14-59 U/L Alkaline Phosphatase 43 46-116 U/L Total Protein 7.9 6.4-8.2 g/dL Albumin Level 4.4 3.4-5.0 g/dL Globulin 3.5 Albumin Globulin Ratio 1.3 Performing Lab: see note - [facility] LB T4 Reviewed date:03/17/2025 06:25:23 PM Interpretation: Performing Lab: Notes/Report: [facility] , T4 Thyroxine 9.50 4.80-13.90 ug/dL Performing Lab: see note - [facility] LB TSH Reviewed date:03/17/2025 06:25:23 PM Interpretation: Performing Lab: Notes/Report: [facility] , Thyroid Stimulating Hormone 0.788 0.358-3.740 u IU/mL Performing Lab: see note [facility] LB Acute Hepatitis Reviewed date:03/19/2025 03:37:28 PM Interpretation: Performing Lab: Notes/Report: [facility] , Hep A Ab, IgM Negative Negative A negative anti-HAV IgM result suggests no recent or current HAV infection. HBsAg Screen Negative Negative Hep B Core Ab, IgM Negative Negative HCV Ab Non Reactive Non Reactive Interpretation: Comment . infection. individual), or other evidence exists to indicate HCV Performed at: [address] [id number] Human Services Assistant: Arthur Drew PhD, Phone: [phone] suspected (which may be delayed in an immunocompromised Not infected with HCV unless early or acute infection is Performing Lab: see note [facility] PROF 14(COMP METB) Reviewed date:03/19/2025 03:37:28 PM Interpretation: Performing Lab: Notes/Report: [facility] [place] , Sodium 141 136-145 mmol/L Potassium 3.4 3.5-5.1 mmol/L Chloride 103 98-107 mmol/L Carbon Dioxide 25.8 21.0-32.0 mmol/L Anion Gap 15.6 Glucose 109 74-106 mg/dL Blood Urea Nitrogen 5.0 7.0-18.0 mg/dL Creatinine 0.64 0.55-1.02 mg/dL Estimated GFR ( Alexus >60 >=60 mL/min/1.73m 2 Estimated GFR (Non- Maria Antonia >60 >=60 mL/min/1.73m 2 BUN Creatinine Ratio 7.8 Calcium 8.9 8.5-10.1 mg/dL Bilirubin Total 0.7 0.2-1.0 mg/dL Aspartate Amino Transferase 46 15-37 U/L Alanine Aminotransferase 101 14-59 U/L Alkaline Phosphatase 41 46-116 U/L Total Protein 7.7 6.4-8.2 g/dL Albumin Level 4.2 3.4-5.0 g/dL Globulin 3.5 Albumin Globulin Ratio 1.2 Performing Lab: see note - [facility] INSULIN Reviewed date:03/19/2025 03:37:28 PM Interpretation: Performing Lab: [facility]Report: [facility] Insulin 22.3 2.6-24.9 uIU/mL [address] [place] [phone] Performed at: [facility] Human Services Assistant: Arthur Drew PhD, Phone: [phone] Performing Lab: see note [facility] LB GLYCOHEMOGLOBIN A1C Reviewed date:03/17/2025 06:25:23 PM Interpretation: Performing Lab: Notes/Report: [facility] [place] , Glycohemoglobin A1C 5.1 4.5-6.2 % > 7.0 ADA THERAPEUTIC TARGET < 7.0 ADA RECOMMENDED LIMIT 4.0 - 6.0 ACTION SUGGESTED Estimated Average Glucose 100 Performing Lab: see note ML - [facility] LB CBC AUTO DIFF Reviewed date:03/17/2025 06:25:23 PM Interpretation: Performing Lab: Notes/Report: [facility] , White Blood Count 6.6 4.0-11.0 10 3/uL Red Blood Count 4.58 4.20-5.40 10 6/uL Hemoglobin 14.6 12.0-16.0 g/dL Hematocrit 40.6 36.0-48.0 % Mean Corpuscular Volume 88.6 81.0-99.0 fL Mean Corpuscular Hemoglobin 31.9 26.7-34.0 pg Mean Corpuscular HGB Conc 36.0 29.9-35.2 g/dL Red Cell Distribution Width 12.0 11.0-15.0 % Platelet Count 206 150-450 10 3/uL Mean Platelet Volume 11.0 9.5-13.5 fL Neutrophils Percent Auto 60.9 43.0-75.0 % Lymphocytes Percent Auto 32.1 20.5-60.0 % Monocytes Percent Auto 6.5 1.7-12.0 % Eosinophils Percent Auto 0.2 0.9-7.0 % Basophils Percent Auto 0.3 0.2-2.0 % Immature Granulocytes Pct Auto 0.0 0.0-0.5 % Neutrophils Absolute Auto 4.0 1.4-6.5 10 3/uL Lymphocytes Absolute Auto 2.1 1.2-3.8 10 3/uL Monocytes Absolute Auto 0.4 0.3-0.8 10 3/uL Eosinophils Absolute Auto 0.0 0.0-0.7 10 3/uL Basophils Absolute Auto 0.0 0.0-0.1 10 3/uL Immature Granulocytes Abs Auto 0.00 0.00-0.03 10 3/uL Performing Lab: see note ML - [facility] LB Reason For Referral No Information Medications Medication SIG (Take, Route, Fr equency, Duration) Notes Start Date End Date Status Abilify 2 MG 1 tablet Orally Once a day; Duration: 30 days 03/21/2025 Active Omeprazole 40 MG 1 capsule 1/2 to 1 h our before morning meal Orally Once a day; Duration: 30 days 03/17/2025 Active Lexapro 10 MG 1 tablet Orally Once a day; Duration: 30 days 03/17/2025 Active Vyvanse 20 MG 1 capsule in the mor simran Orally Once a day; Duration: 30 days 03/23/2025 Active hydrOXYzine HCl 10 MG 2 tablet Orally QID- PRN Active Social History Tobacco Use: Social History Observation Description Date Details (start date - stop date) Former Smoker 06/30/2005 - 02/28/2010 Tobacco Control (Standard) Question Answer Notes Tobacco use: Former smoker When did you start smoking? 06/30/2005 When did you stop smoking? 02/28/2010 How long has it been since you last smoked? [address] ter than 10 years Additional Findings: Tobacco [...] Problem Status W/U Status Risk Notes Problem Chest pain (09334870) Chest pain (R07.9) Active confirmed Problem Hypertension (01492281) Hypertension (I10) Active confirmed Problem Gastroesophageal reflux disease (026879920) GERD (gastroesophageal reflux disease) (K21.9) Active confirmed Problem Cervical radiculopathy (03614992) Cervical radiculopathy (M54.12) Active confirmed Problem Sleep apnea (49253940) Sleep apnea (G47.30) Active confirmed Problem Well adult (652074875) Well adult (Z00.00) Active confirmed Problem Hyperthyroidism (34171640) Hyperthyroidism (E05.90) Active confirmed Problem Attention deficit hyperactivity disorder (798601635) ADHD (F90.9) Active confirmed Problem Anxiety (08985230) Anxiety (F41.9) Active confi rmed Vital Signs Heart Rate 76 /min 03/17/2025 Blood pressure diastolic 92 mm Hg 03/17/2025 Height 64 in 03/17/2025 Blood pressure systolic 142 mm Hg 03/17/2025 Weight 279.0 lbs 03/17/2025 BMI 47.89 kg/m2 03/17/2025 Procedures Procedure Date Ordered Date Performed Result Body Sit e CARDIO Echocardiogram 03/17/2025 N/A VASC US CAROTID ARTERY DUPLEX BILATERAL 03/17/2025 N/A Encounters Encounter Location Date Provider Diagnosis [facility] [address] [place] [address] 03/17/2025 Brain Artismyra Elevated liver funct ion tests R94.5 and Hyperthyroidism E05.90 [facility] [address] [place] [place] [address] 03/18/2025 Brain Wisdommyra [facility] [address] [place] [address] 03/19/2025 Brain Artisy [facility] [address] [place] [place] [address] 03/23/2025 Brain Dustin ADHD F90.9 [facility] [address] [place] [address] 03/17/2025 Brain Wisdommyra Anxiety F41.9 ; Hypertension I10 ; Chest pain R07.9 ; Cervical radiculopathy M54.12 ; Well adult Z00.00 ; Sleep apnea G47.30 and ADHD F90.9 Assessments Encounter Date Diagnosis (ICD Code) Assessment Notes Treatment Notes Treatment Clinical Notes Section Notes 03/17/2025 Anxiety (ICD-10 - F41.9) back on lexapro 03/17/2025 Hypertension (ICD-10 - I10) up here - 03/17/2025 Elevated liver function tests (ICD-10 - R94.5) 03/23/2025 ADHD (ICD-10 - F90.9) 03/17/2025 Hyperthyroidism (ICD-10 - E05.90) 03/17/2025 Chest pain (ICD-10 - R07.9) checking echo 03/17/2025 Cervical radiculopathy (ICD-10 - M54.12) getting EMG 03/17/2025 Well adult (ICD-10 - Z00.00) needs labs 03/17/2025 Sleep apnea (ICD-10 - G47.30) Weaing mas daily - help ihwt daytime fatiguye 03/17/2025 ADHD (ICD-10 - F90.9) Plan Of Treatment Pending Test Test Name Order Date HEMOGLOBIN A1C (GLYCO) 03/17/2025 IRON, TOTAL 03/17/2025 LIPID PANEL (CHOL/TRIG/HDL/LDL) 03/17/20 25 CARDIO Echocardiogram 03/17/2025 ACUTE HEPATITIS PANEL 03/17/2025 Insulin Level 03/17/2025 COMPREHENSIVE METABOLIC PROFILE WITH GFR 03/17/2025 THYROID PANEL (T4/TSH/FREE T3) THYROID PANEL (T4/TSH/FREE T3) 5 US abdomen complete 03/17/2025 VASC US CAROTID ARTERY DUPLEX BILATERAL 03/17/2025 CMP (COMP MET CURRY) w/eGFR CKD-EPI 2024 CBC WITH DIFF 03/17/2025 Insurance Providers Payer Name Payer Address Payer Phone Subscriber Number Group Number Insured Name Patient Relationship to Insured Coverage Start Date Coverage End Date MMO [address] [place], [place] [phone] [id number] [place] Rachel Self - patient is the insured Medical (General) History Medical History History ICD Code Anxiety F41.9 GERD (gastroesophageal reflux disease) K 21.9 Hypertension I10 Surgical History Surgery Date(Month/Year) CHOLECYSTECTOMY 2021 DELIVERY- twins 2009 Right ankle surgery x5 BB removed from right eyelid 1993
--- NOTE | 2025-03-25 10:00 | CA_ITS ---
Patient Name: HUMBERTO GARCIA MR#: [id number] : 1985 Exam Date: 03/25/2025 Ordering Doctor: DR DIRK VILLASEÑOR . ECHOCARDIOGRAM REPORT PROCEDURE: CA ECHO DOPPLER COMPLETE INDICATIONS: Hypertension, Chest pain COMPARISON: None. DESCRIPTION: COMPLETE ECHOCARDIOGRAM Real-time transthoracic echocardiography with 2D, M-mode, spectral and color flow Doppler performed. QUALITY: Technical quality was good. LEFT VENTRICLE: Normal chamber size. Mild concentric left ventricular hypertrophy. Global left ventricular systolic function is normal. LV EF: Estimated left ventricular ejection fraction is 65-70%. DIASTOLIC: Normal diastolic function. ATRIAL SEPTUM: LEFT ATRIUM: Normal chamber size. RIGHT ATRIUM: Mild dilatation. RIGHT VENTRICLE: Normal chamber size. Normal right ventricular systolic function. TRICUSPID VALVE: Normal mobility and thickness. No stenosis with trivial regurgitation. No evidence of pulmonary hypertension. RVSP 19 mmHg. MITRAL VALVE: Normal mobility and thickness. No evidence of mitral valve stenosis. There is no mitral annular calcification. No mitral regurgitation. AORTIC VALVE: Normal trileaflet appearance. No visible sclerosis. Normal leaflet mobility. No evidence of aortic valve stenosis. No aortic regurgitation. AORTIC ROOT: Normal diameter and appearance, measuring 3.2 cm. The ascending aorta is normal in size measuring 2.8 cm PULMONIC VALVE: Normal thickness and mobility. No stenosis. Trivial regurgitation. PERICARDIUM: No evidence of pericardial effusion. IVC: Collapses with inspiration. Normal size. PLEURA: CONCLUSION: 1. Mild concentric ventricular hypertrophy with normal systolic function. Estimated LVEF is 65 to 70%. 2. Normal right ventricular size and systolic function. 3. Normal diastolic function. 4. No significant valvular dysfunction. 5. Normal right-sided pressures. Adult Echocardiography Procedure Report Left Ventricle LVEDD (3.7 - 5.6 cm): 4.43 cm LVESD (2.2 - 4.0 cm): 3.33 cm LVIVS thickness (0.6 - 1.2 cm): 1.15 cm LVPW thickness (0.5 - 1.0 cm): 1.02 cm e': 0.12 m/s E - e': 4.93 LVOT Max Gradient: 2.74 mm[Hg] LVOT Area (cm2): 0.83 m/s Peak Velocity (LVOT): 0.83 m/s Mean Velocity (LVOT): 0.50 m/s LVOT Diameter 2.19 cm Left Ventricular Ejection Fraction: 65-70% Left Atrium LA Volume Index (2D A2C): 22.80 ml/m2 Left Atrium Systolic Dimension: 3.53 cm Mitral Valve MV E to A Ratio: 1.30 Mitral Valve A-Wave Peak Velocity: 0.46 m/s Mitral Valve E-Wave Peak Velocity: 0.60 m/s Right Ventricle RV Internal Diastolic Dimension: 3.33 cm Aorta AO Root Diam: 3.19 cm Ascending Ao Diam: 2.80 cm Aortic Valve AoV Area (Peak Adolfo): 3.20 cm2, 3.20 cm2 AoV Area (VTI): 3.10 cm2, 3.10 cm2 Peak Velocity(Antegrade Flow): 0.97 m/s Peak Gradient(Antegrade Flow): 3.80 mm[Hg] Mean Velocity(Antegrade Flow): 0.65 m/s Mean Gradient(Antegrade Flow): 2.03 mm[Hg] Velocity Time Integral: 19.73 cm Tricuspid Valve Peak Velocity (Regurgitant Flow): 2.02 m/s Pulmonic Valve Mean Gradient: 2.31 mm[Hg], 1.96 mm[Hg] Mean Velocity: 0.70 m/s, 0.65 m/s Peak Velocity: 1.01 m/s Peak Gradient: 4.38 mm[Hg], 3.81 mm[Hg] Right Atrium Right Atrium Systolic Pressure: 31.22 ml, 31.22 ml Dictated by: Macario Bello M.D. on 03/25/2025 at 14:41 Approved by: Macario Bello M.D. on 03/25/2025 at 14:44
== END 2025-03-25 07:24 | disposition home or self-care (01) ==
LOC: US 07:24
PROVIDERS: PCP Family Medicine; Visit Provider Family Medicine
DX: R94.5 Abnormal results of liver function studies (principal); I10 Essential (primary) hypertension; R07.9 Chest pain, unspecified; K76.0 Fatty (change of) liver, not elsewhere classified
CPT/HCPCS: 76700; 93306; 93880